=== PATIENT | female | born 1960 | race Caucasian/White ===

== ENCOUNTER 2018-02-02 23:24 | Inpatient (IN) | payer MEDICAID ==
[~2018-02-02] VITALS: Ht 160 cm; Wt 41.5 kg
[~2018-02-02 23:24] MED LIST: ENALAPRIL; GLIPIZIDE; METFORMIN; NOVOLOG
[2018-02-02] MEDS ORDERED: SODIUM CHLORIDE 0.9% 1,000 ML IV ONE (23:34)
[2018-02-02] MEDS ORDERED: LORazepam 2 MG/ML, 1ML ONE (23:51)
[2018-02-03] MEDS ORDERED: LORazepam 2 MG/ML, 1ML IVPush ONE
[2018-02-03] MEDS ORDERED: SODIUM CHLORIDE 0.9% 1,000ML IVBOLUS ONE
[2018-02-03] MEDS ORDERED: SODIUM CHLORIDE FLUSH 10ML SYR IVF ONE
[2018-02-03 00:08] LABS: MEAN CORPUSCULAR HEMOGLOBIN 28.3 pg (27.0-34.8); MEAN CORPUSCULAR HGB CONC 33.7 g/dL (32.4-35.8); MEAN CORPUSCULAR VOLUME 84.1 fL (80-100); MEAN PLATELET VOLUME 10.2 fL (7.4-10.4); PLATELET COUNT 192 x10^3/uL (130-400); RED CELL DISTRIBUTION WIDTH 14.6 % (9.6-15.2)
[2018-02-03 00:12] LABS: MICROSCOPIC AUTO
[2018-02-03 00:20] LABS: CULTURE INDICATED? YES
[2018-02-03 00:25] LABS: BASOPHILS # (AUTO) 0.06 x10^3/uL (0-0.1); BASOPHILS % (AUTO) 0 % (0-1); EOSINOPHILS # (AUTO) 0.07 x10^3/uL (0-0.4); EOSINOPHILS % (AUTO) 0 % (1-7); LYMPHOCYTES # (AUTO) 1.33 x10^3/uL (1-3.4); LYMPHOCYTES % (AUTO) 7 % (22-44); MD SCAN; MONOCYTES # (AUTO) 1.22 x10^3/uL (0.2-0.8); MONOCYTES % (AUTO) 6 % (2-9); NEUTROPHILS # (AUTO) 17.03 x10^3/uL (1.8-6.8); NEUTROPHILS % (AUTO) 86 % (42-75)
[2018-02-03 00:41] LABS: ALANINE AMINOTRANSFERASE 47 U/L (12-78); ALBUMIN 2.4 g/dL (3.4-5.0); ANION GAP 9 mmol/L (5-15); CALCIUM 8.7 mg/dL (8.5-10.1); CHLORIDE 95 mmol/L (98-107); CREATININE 0.81 mg/dL (0.55-1.02)
[2018-02-03 00:43] LABS: ALKALINE PHOSPHATASE 291 U/L (45-117); BILIRUBIN,TOTAL 1.2 mg/dL (0.2-1.0); TOTAL PROTEIN 7.4 g/dL (6.4-8.2)
[2018-02-03] MEDS ORDERED: ACETAMINOPHEN 325 MG TABLET PO PRN (01:00)
[2018-02-03] MEDS ORDERED: DOCUSATE 100 MG CAPSULE PO PRN (01:00)
[2018-02-03] MEDS ORDERED: POLYETHYLENE GLYCOL 17 GM PACKET PO PRN (01:00)
[2018-02-03] MEDS ORDERED: hydrALAzine 20 MG/ML, 1ML IVPush PRN (01:00)
[2018-02-03] MEDS ORDERED: BISACODYL 10 MG SUPP PR PRN (01:00)
[2018-02-03] MEDS ORDERED: morphine SULFATE 10 MG/ML, 1ML IVPush PRN (01:00)
[2018-02-03] MEDS ORDERED: PROMETHAZINE 25 MG/ML, 1ML IM PRN (01:00)
[2018-02-03] MEDS ORDERED: ONDANSETRON ODT 4 MG PO PRN (01:00)
[2018-02-03] MEDS ORDERED: CEFTRIAXONE PMX 1GM/50ML 50 ML IV ONE (01:00)
[2018-02-03] MEDS ORDERED: CEFTRIAXONE PMX 1GM/50ML 50 ML IVPB ONE (01:00)
[2018-02-03] MEDS ORDERED: LABETALOL 5MG/ML, 20ML IVPush PRN (01:00)
[2018-02-03 01:15] LABS: INTERNATIONAL NORMALIZED RATIO 1.15 (0.93-1.1); PROTHROMBIN TIME 11.8 Seconds (9.6-11.5)
[2018-02-03] MEDS ORDERED: CEFTRIAXONE PMX 1GM/50ML 50 ML ONE (01:16)
[2018-02-03 01:23] LABS: FREE T4 (FREE THYROXINE) 1.26 ng/dL (0.76-1.46); THYROID STIMULATING HORMONE 1.74 mIU/L (0.358-3.740)
[2018-02-03 01:43] LABS: HEMOGLOBIN A1C 10.2 % (4.2-6.3)
[2018-02-03] MEDS ORDERED: LABETALOL 5MG/ML, 20ML ONE (01:48)
[2018-02-03] MEDS: SODIUM CHLORIDE 0.9% 1,000 ML IV SCH ×3 (02:35→17:29)
[2018-02-03 02:38] VITALS: BP 153/77
[2018-02-03] MEDS: HEPARIN 5,000 UNITS/ML, 1ML SQ SCH ×3 (02:50→19:30)
[2018-02-03 06:24] VITALS: BP 131/69
[2018-02-03] MEDS: INSULIN LISPRO 100 UNITS/ML, PEN SQ-INSULIN SCH ×4 (07:00→21:00)
[2018-02-03] MEDS: LOSARTAN 25MG TABLET PO SCH (09:00)
[2018-02-03 11:11] LABS: AMPHETAMINE SCREEN, URINE Positive (Negative); BARBITURATE SCREEN, URINE Negative (Negative); BENZODIAZEPINE SCREEN, URINE Negative (Negative); CANNABINOID SCREEN, URINE Positive (Negative); COCAINE SCREEN, URINE Negative (Negative); METHADONE SCREEN, URINE Negative (Negative); OPIATE SCREEN, URINE Negative (Negative)
[2018-02-03] MEDS: METOCLOPRAMIDE 5 MG/ML, 2ML IVPush SCH ×3 (11:29→22:30)
[2018-02-03 12:50] VITALS: BP 140/74
[2018-02-03 18:21] VITALS: BP 146/77
[2018-02-03] MEDS ORDERED: OMNIPAQUE 350 MG/ML, 100ML BOTTLE ONE (18:37)
[2018-02-03] MEDS ORDERED: CEFTRIAXONE PMX 2GM/50ML 50 ML IV SCH (23:30)
[2018-02-04] MEDS: CEFTRIAXONE 2 GM in DEXTROSE 5% 50 ML IV SCH (00:39)
[2018-02-04 01:56] VITALS: BP 135/73
[2018-02-04] MEDS: HEPARIN 5,000 UNITS/ML, 1ML SQ SCH ×3 (03:30→19:56)
[2018-02-04 05:03] LABS: MEAN CORPUSCULAR HEMOGLOBIN 28.8 pg (27.0-34.8); MEAN CORPUSCULAR HGB CONC 33.9 g/dL (32.4-35.8); MEAN CORPUSCULAR VOLUME 84.9 fL (80-100); MEAN PLATELET VOLUME 10.5 fL (7.4-10.4); PLATELET COUNT 143 x10^3/uL (130-400); RED BLOOD COUNT 4.12 x10^6/uL (3.82-5.3)
[2018-02-04 05:05] LABS: ALBUMIN 1.8 g/dL (3.4-5.0); ANION GAP 10 mmol/L (5-15); CALCIUM 7.3 mg/dL (8.5-10.1); CHLORIDE 105 mmol/L (98-107)
[2018-02-04 05:08] LABS: ALANINE AMINOTRANSFERASE 33 U/L (12-78); ALKALINE PHOSPHATASE 239 U/L (45-117); BILIRUBIN,TOTAL 1.4 mg/dL (0.2-1.0); CHOL/HDL RATIO 12.5; CHOLESTEROL, TOTAL 100 mg/dL (140-239); CREATININE 0.59 mg/dL (0.55-1.02); HDL CHOL % 8 % (28-40); HDL CHOLESTEROL (DIRECT) 8 mg/dL (40-60); LDL CHOLESTEROL,CALCULATED 63 mg/dL (54-169); LDL/HDL RATIO 7.9 (0.5-3.0); TOTAL PROTEIN 5.9 g/dL (6.4-8.2); TRIGLYCERIDES 146 mg/dL (50-200); VLDL CHOLESTEROL 29 mg/dL (0-25)
[2018-02-04 05:57] LABS: MD YES
[2018-02-04 05:58] LABS: BAND#(MANUAL) 0.94 x10^3/uL; BANDS%(MANUAL) 4 % (0-7); LYMPH#(MANUAL) 0.94 x10^3/uL (1-3.4); LYMPHS% (MANUAL) 4 % (22-44); MONOS#(MANUAL) 1.65 x10^3/uL (0.3-2.7); MONOS% (MANUAL) 7 % (2-9); SEG#(MANUAL) 19.98 x10^3/uL (1.8-6.8); SEGS% (MANUAL) 85 % (42-75)
[2018-02-04 05:59] LABS: <PLATELET ESTIMATE> ADEQUATE; <RBC MORPHOLOGY> NORMAL; LARGE PLATELETS 1+
[2018-02-04 06:00] LABS: PMNS WITH VACUOLES 1+
[2018-02-04] MEDS: INSULIN LISPRO 100 UNITS/ML, PEN SQ-INSULIN SCH ×4 (07:00→19:56)
[2018-02-04 08:44] VITALS: BP 155/84
[2018-02-04] MEDS ORDERED: OMNIPAQUE 350 MG/ML, 100ML BOTTLE ONE (10:56)
[2018-02-04 11:46] LABS: CLOSTRIDIUM DIFFICILE ANTIGEN POSITIVE; CLOSTRIDIUM DIFFICILE TOXIN NEGATIVE (Negative)
[2018-02-04] MEDS: LOSARTAN 25MG TABLET PO SCH (11:55)
[2018-02-04] MEDS ORDERED: VANCOMYCIN PER PHARMACY MC PRN (13:30)
[2018-02-04] MEDS ORDERED: PHARMACOKINETIC CONSULTATION MC ONE (13:30)
[2018-02-04] MEDS ORDERED: VANCOMYCIN 800 MG in SODIUM CHLORIDE 0.9% 100 ML IV SCH (14:00)
[2018-02-04] MEDS ORDERED: PHARMACOKINETIC MONITORING MC PRN (14:00)
[2018-02-04 16:12] VITALS: BP 154/66
[2018-02-04 18:40] VITALS: BP 155/89
[2018-02-05] MEDS: CEFTRIAXONE 2 GM in DEXTROSE 5% 50 ML IV SCH (00:08)
[2018-02-05 00:36] VITALS: BP 145/74
[2018-02-05] MEDS: HEPARIN 5,000 UNITS/ML, 1ML SQ SCH ×3 (04:48→20:43)
[2018-02-05] MEDS: OXYcodone IR 5MG TABLET PO PRN ×3 (04:48→17:53)
[2018-02-05 05:25] LABS: MEAN CORPUSCULAR HEMOGLOBIN 28.4 pg (27.0-34.8); MEAN CORPUSCULAR HGB CONC 33.4 g/dL (32.4-35.8); MEAN CORPUSCULAR VOLUME 85.2 fL (80-100); PLATELET COUNT 154 x10^3/uL (130-400); RED BLOOD COUNT 4.41 x10^6/uL (3.82-5.3); RED CELL DISTRIBUTION WIDTH 15.2 % (9.6-15.2)
[2018-02-05 05:28] LABS: ALBUMIN 1.7 g/dL (3.4-5.0); ANION GAP 8 mmol/L (5-15); CALCIUM 7.7 mg/dL (8.5-10.1); CHLORIDE 101 mmol/L (98-107)
[2018-02-05 05:31] LABS: ALANINE AMINOTRANSFERASE 29 U/L (12-78); ALKALINE PHOSPHATASE 236 U/L (45-117); BILIRUBIN,TOTAL 0.9 mg/dL (0.2-1.0); CREATININE 0.47 mg/dL (0.55-1.02); TOTAL PROTEIN 5.9 g/dL (6.4-8.2)
[2018-02-05 06:35] LABS: MD YES
[2018-02-05 06:37] LABS: BAND#(MANUAL) 1.17 x10^3/uL; BANDS%(MANUAL) 6 % (0-7); LYMPH#(MANUAL) 0.78 x10^3/uL (1-3.4); LYMPHS% (MANUAL) 4 % (22-44); MONOS#(MANUAL) 0.78 x10^3/uL (0.3-2.7); MONOS% (MANUAL) 4 % (2-9); SEG#(MANUAL) 16.77 x10^3/uL (1.8-6.8); SEGS% (MANUAL) 86 % (42-75)
[2018-02-05 06:38] LABS: <RBC MORPHOLOGY> NORMAL; PMNS WITH VACUOLES 1+; TOXIC GRAN 1+
[2018-02-05 06:39] LABS: <PLATELET ESTIMATE> ADEQUATE; <PLT MORPHOLOGY> NORMAL PLT MORPH
[2018-02-05 07:27] VITALS: BP 149/84
[2018-02-05] MEDS: LOSARTAN 25MG TABLET PO SCH (08:51)
[2018-02-05] MEDS: INSULIN LISPRO 100 UNITS/ML, PEN SQ-INSULIN SCH ×4 (08:56→20:52)
[2018-02-05] MEDS: ERTAPENEM 1 GM in SODIUM CHLORIDE 0.9% 50 ML IV SCH (10:26)
[2018-02-05 13:28] VITALS: BP 146/79
[2018-02-05] MEDS: LACTATED RINGERS 1,000 ML IV SCH (16:15)
[2018-02-05 19:28] VITALS: BP 138/75
[2018-02-06] MEDS: LACTATED RINGERS 1,000 ML IV SCH ×3 (02:03→21:00)
[2018-02-06 02:16] VITALS: BP 157/81
[2018-02-06] MEDS: HEPARIN 5,000 UNITS/ML, 1ML SQ SCH (04:20)
[2018-02-06 05:15] LABS: MEAN CORPUSCULAR HEMOGLOBIN 28.3 pg (27.0-34.8); MEAN CORPUSCULAR HGB CONC 33.3 g/dL (32.4-35.8); MEAN CORPUSCULAR VOLUME 85.1 fL (80-100); MEAN PLATELET VOLUME 9.9 fL (7.4-10.4); PLATELET COUNT 123 x10^3/uL (130-400); RED BLOOD COUNT 4.26 x10^6/uL (3.82-5.3); RED CELL DISTRIBUTION WIDTH 15.2 % (9.6-15.2)
[2018-02-06 05:19] LABS: CHLORIDE 101 mmol/L (98-107)
[2018-02-06 05:24] LABS: ALANINE AMINOTRANSFERASE 22 U/L (12-78); ALBUMIN 1.6 g/dL (3.4-5.0); ALKALINE PHOSPHATASE 183 U/L (45-117); ANION GAP 8 mmol/L (5-15); CALCIUM 7.6 mg/dL (8.5-10.1); CREATININE 0.38 mg/dL (0.55-1.02); TOTAL PROTEIN 5.3 g/dL (6.4-8.2)
[2018-02-06 05:47] LABS: MD YES
[2018-02-06 05:50] LABS: BANDS%(MANUAL) 7 % (0-7); LYMPHS% (MANUAL) 6 % (22-44); METAMYELOCYTES% (MANUAL) 1 % (0-1); MONOS% (MANUAL) 7 % (2-9); SEGS% (MANUAL) 79 % (42-75)
[2018-02-06 05:51] LABS: <PLATELET ESTIMATE> DECREASED; <PLT MORPHOLOGY> NORMAL PLT MORPH; <RBC MORPHOLOGY> NORMAL; TOXIC GRAN 1+
[2018-02-06 06:37] VITALS: BP 144/81
[2018-02-06] MEDS ORDERED: LABETALOL 5MG/ML, 20ML IVPush PRN (09:30)
[2018-02-06] MEDS: OXYcodone IR 5MG TABLET PO PRN ×3 (10:13→20:59)
[2018-02-06] MEDS: ERTAPENEM 1 GM in SODIUM CHLORIDE 0.9% 50 ML IV SCH (10:13)
[2018-02-06] MEDS: LOSARTAN 25MG TABLET PO SCH (10:13)
[2018-02-06] MEDS: INSULIN LISPRO 100 UNITS/ML, PEN SQ-INSULIN SCH ×4 (10:16→21:03)
[2018-02-06 13:43] VITALS: BP 139/82
[2018-02-06] MEDS: VANCOMYCIN 50 MG/ML ORAL SUSP PO SCH ×2 (15:59→23:51)
[2018-02-06 20:30] VITALS: BP 153/84
[2018-02-07] MEDS: OXYcodone IR 5MG TABLET PO PRN ×5 (01:22→19:56)
[2018-02-07 02:17] VITALS: BP 153/91
[2018-02-07 06:31] VITALS: BP 155/83
[2018-02-07] MEDS: INSULIN LISPRO 100 UNITS/ML, PEN SQ-INSULIN SCH ×4 (08:22→21:47)
[2018-02-07] MEDS: VANCOMYCIN 50 MG/ML ORAL SUSP PO SCH ×2 (08:23→15:25)
[2018-02-07] MEDS: LOSARTAN 25MG TABLET PO SCH (09:35)
[2018-02-07] MEDS: ERTAPENEM 1 GM in SODIUM CHLORIDE 0.9% 50 ML IV SCH (09:36)
[2018-02-07] MEDS: LACTATED RINGERS 1,000 ML IV SCH (09:37)
[2018-02-07 12:48] VITALS: BP 147/81
[2018-02-07 20:04] VITALS: BP 151/80
[2018-02-07] MEDS: INSULIN GLARGINE 100 UNITS/ML, PEN SQ-INSULIN SCH (21:47)
[2018-02-08] MEDS: LACTATED RINGERS 1,000 ML IV SCH ×3 (00:26→23:56)
[2018-02-08] MEDS: VANCOMYCIN 50 MG/ML ORAL SUSP PO SCH ×3 (00:27→23:56)
[2018-02-08 02:01] VITALS: BP 151/72
[2018-02-08 04:49] LABS: BASOPHILS # (AUTO) 0.05 x10^3/uL (0-0.1); BASOPHILS % (AUTO) 0 % (0-1); EOSINOPHILS % (AUTO) 1 % (1-7); LYMPHOCYTES # (AUTO) 1.41 x10^3/uL (1-3.4); LYMPHOCYTES % (AUTO) 11 % (22-44); MD NO; MEAN CORPUSCULAR HEMOGLOBIN 27.9 pg (27.0-34.8); MEAN CORPUSCULAR HGB CONC 32.2 g/dL (32.4-35.8); MEAN CORPUSCULAR VOLUME 86.6 fL (80-100); MEAN PLATELET VOLUME 9.9 fL (7.4-10.4); MONOCYTES # (AUTO) 1.12 x10^3/uL (0.2-0.8); MONOCYTES % (AUTO) 9 % (2-9); NEUTROPHILS # (AUTO) 10.06 x10^3/uL (1.8-6.8); NEUTROPHILS % (AUTO) 79 % (42-75); PLATELET COUNT 118 x10^3/uL (130-400); RED BLOOD COUNT 4.04 x10^6/uL (3.82-5.3); RED CELL DISTRIBUTION WIDTH 15.6 % (9.6-15.2)
[2018-02-08 04:59] LABS: ALBUMIN 1.5 g/dL (3.4-5.0); ANION GAP 7 mmol/L (5-15); CALCIUM 7.2 mg/dL (8.5-10.1); CHLORIDE 102 mmol/L (98-107); CREATININE 0.28 mg/dL (0.55-1.02)
[2018-02-08] MEDS: INSULIN LISPRO 100 UNITS/ML, PEN SQ-INSULIN SCH ×2 (06:17→11:00)
[2018-02-08 08:13] VITALS: BP 163/84
[2018-02-08] MEDS ORDERED: MAGNESIUM SULFATE PMX 4GM/100M 100 ML IV ONE (09:00)
[2018-02-08] MEDS: LOSARTAN 25MG TABLET PO SCH (09:17)
[2018-02-08] MEDS: ERTAPENEM 1 GM in SODIUM CHLORIDE 0.9% 50 ML IV SCH (09:17)
[2018-02-08] MEDS: INSULIN GLARGINE 100 UNITS/ML, PEN SQ-INSULIN SCH (09:18)
[2018-02-08] MEDS: OXYcodone IR 5MG TABLET PO PRN ×4 (10:01→22:41)
[2018-02-08 15:42] VITALS: BP 160/89
[2018-02-08 18:38] VITALS: BP 159/84
[2018-02-08] MEDS: ENOXAPARIN 40 MG/0.4 ML SQ SCH (20:55)
[2018-02-09 02:07] VITALS: BP 152/73
[2018-02-09 05:25] LABS: BASOPHILS # (AUTO) 0.07 x10^3/uL (0-0.1); BASOPHILS % (AUTO) 1 % (0-1); EOSINOPHILS # (AUTO) 0.11 x10^3/uL (0-0.4); EOSINOPHILS % (AUTO) 1 % (1-7); LYMPHOCYTES # (AUTO) 1.15 x10^3/uL (1-3.4); LYMPHOCYTES % (AUTO) 11 % (22-44); MD NO; MEAN CORPUSCULAR HGB CONC 32.8 g/dL (32.4-35.8); MEAN CORPUSCULAR VOLUME 85.4 fL (80-100); MEAN PLATELET VOLUME 9.6 fL (7.4-10.4); MONOCYTES # (AUTO) 0.72 x10^3/uL (0.2-0.8); MONOCYTES % (AUTO) 7 % (2-9); NEUTROPHILS # (AUTO) 8.62 x10^3/uL (1.8-6.8); NEUTROPHILS % (AUTO) 81 % (42-75); PLATELET COUNT 135 x10^3/uL (130-400); RED BLOOD COUNT 4.06 x10^6/uL (3.82-5.3); RED CELL DISTRIBUTION WIDTH 15.3 % (9.6-15.2)
[2018-02-09 05:26] LABS: ALBUMIN 1.7 g/dL (3.4-5.0); ANION GAP 4 mmol/L (5-15); CALCIUM 7.9 mg/dL (8.5-10.1); CHLORIDE 99 mmol/L (98-107); CREATININE 0.47 mg/dL (0.55-1.02)
[2018-02-09] MEDS: OXYcodone IR 5MG TABLET PO PRN ×4 (05:45→22:23)
[2018-02-09 07:57] VITALS: BP 142/87
[2018-02-09] MEDS: LOSARTAN 25MG TABLET PO SCH (08:27)
[2018-02-09] MEDS: INSULIN GLARGINE 100 UNITS/ML, PEN SQ-INSULIN SCH ×3 (08:29→20:40)
[2018-02-09] MEDS: ERTAPENEM 1 GM in SODIUM CHLORIDE 0.9% 50 ML IV SCH (08:44)
[2018-02-09] MEDS: LACTATED RINGERS 1,000 ML IV SCH ×2 (10:04→20:00)
[2018-02-09] MEDS: VANCOMYCIN 50 MG/ML ORAL SUSP PO SCH (11:51)
[2018-02-09 14:54] VITALS: BP 162/82
[2018-02-09 19:15] VITALS: BP 179/84
[2018-02-09] MEDS: ENOXAPARIN 40 MG/0.4 ML SQ SCH (20:34)
[2018-02-10] MEDS: VANCOMYCIN 50 MG/ML ORAL SUSP PO SCH ×2 (00:07→13:33)
[2018-02-10 01:28] VITALS: BP 138/77
[2018-02-10] MEDS: LACTATED RINGERS 1,000 ML IV SCH (05:03)
[2018-02-10] MEDS: INSULIN GLARGINE 100 UNITS/ML, PEN SQ-INSULIN SCH ×2 (09:00→21:53)
[2018-02-10 09:29] VITALS: BP 173/96
[2018-02-10] MEDS: ERTAPENEM 1 GM in SODIUM CHLORIDE 0.9% 50 ML IV SCH (09:58)
[2018-02-10] MEDS: LOSARTAN 25MG TABLET PO SCH (09:58)
[2018-02-10] MEDS: OXYcodone IR 5MG TABLET PO PRN ×3 (09:58→19:27)
[2018-02-10 12:55] VITALS: BP 143/79
[2018-02-10 19:02] VITALS: BP 176/80
[2018-02-10 21:51] VITALS: BP 139/57
[2018-02-10] MEDS: ENOXAPARIN 40 MG/0.4 ML SQ SCH (21:53)
[2018-02-11] MEDS: OXYcodone IR 5MG TABLET PO PRN ×4 (00:25→19:30)
[2018-02-11] MEDS: VANCOMYCIN 50 MG/ML ORAL SUSP PO SCH ×2 (00:25→12:28)
[2018-02-11 03:49] VITALS: BP 128/64
[2018-02-11 05:37] LABS: BASOPHILS # (AUTO) 0.02 x10^3/uL (0-0.1); BASOPHILS % (AUTO) 0 % (0-1); EOSINOPHILS % (AUTO) 1 % (1-7); LYMPHOCYTES # (AUTO) 1.56 x10^3/uL (1-3.4); LYMPHOCYTES % (AUTO) 14 % (22-44); MD NO; MEAN CORPUSCULAR HEMOGLOBIN 28.9 pg (27.0-34.8); MEAN CORPUSCULAR HGB CONC 33.7 g/dL (32.4-35.8); MEAN CORPUSCULAR VOLUME 85.9 fL (80-100); MEAN PLATELET VOLUME 9.6 fL (7.4-10.4); MONOCYTES # (AUTO) 0.95 x10^3/uL (0.2-0.8); MONOCYTES % (AUTO) 9 % (2-9); NEUTROPHILS % (AUTO) 76 % (42-75); PLATELET COUNT 123 x10^3/uL (130-400); RED BLOOD COUNT 3.61 x10^6/uL (3.82-5.3); RED CELL DISTRIBUTION WIDTH 15.4 % (9.6-15.2)
[2018-02-11 05:50] LABS: ALBUMIN 1.6 g/dL (3.4-5.0); ANION GAP 8 mmol/L (5-15); CALCIUM 7.4 mg/dL (8.5-10.1); CHLORIDE 95 mmol/L (98-107)
[2018-02-11 05:54] LABS: ALANINE AMINOTRANSFERASE 14 U/L (12-78); ALKALINE PHOSPHATASE 137 U/L (45-117); TOTAL PROTEIN 5.1 g/dL (6.4-8.2)
[2018-02-11] MEDS ORDERED: MAGNESIUM SULFATE PMX 2GM/50ML 50 ML IV ONE ×2 (06:30→12:30)
[2018-02-11 06:38] VITALS: BP 174/89
[2018-02-11] MEDS: ERTAPENEM 1 GM in SODIUM CHLORIDE 0.9% 50 ML IV SCH (09:24)
[2018-02-11] MEDS: LOSARTAN 25MG TABLET PO SCH (09:24)
[2018-02-11] MEDS: INSULIN GLARGINE 100 UNITS/ML, PEN SQ-INSULIN SCH ×2 (09:44→21:49)
[2018-02-11] MEDS ORDERED: INSULIN GLARGINE 100 UNITS/ML, PEN SQ-INSULIN ONE (12:30)
[2018-02-11 14:10] VITALS: BP 128/70
[2018-02-11 19:27] VITALS: BP 135/75
[2018-02-11] MEDS: ENOXAPARIN 40 MG/0.4 ML SQ SCH (21:40)
[2018-02-12] MEDS: VANCOMYCIN 50 MG/ML ORAL SUSP PO SCH ×3 (00:45→20:44)
[2018-02-12 01:30] VITALS: BP 133/71
[2018-02-12 05:25] LABS: MD YES; MEAN CORPUSCULAR HEMOGLOBIN 28.7 pg (27.0-34.8); MEAN CORPUSCULAR HGB CONC 33.2 g/dL (32.4-35.8); MEAN CORPUSCULAR VOLUME 86.6 fL (80-100); MEAN PLATELET VOLUME 9.3 fL (7.4-10.4); PLATELET COUNT 127 x10^3/uL (130-400); RED BLOOD COUNT 3.51 x10^6/uL (3.82-5.3); RED CELL DISTRIBUTION WIDTH 15.7 % (9.6-15.2)
[2018-02-12 05:45] LABS: ALANINE AMINOTRANSFERASE 15 U/L (12-78); CHLORIDE 98 mmol/L (98-107)
[2018-02-12 05:46] LABS: BASOPHILS # (AUTO) 0.07 x10^3/uL (0-0.1); BASOPHILS % (AUTO) 1 % (0-1); EOSINOPHILS # (AUTO) 0.04 x10^3/uL (0-0.4); EOSINOPHILS % (AUTO) 1 % (1-7); LYMPHOCYTES # (AUTO) 1.56 x10^3/uL (1-3.4); LYMPHOCYTES % (AUTO) 18 % (22-44); MONOCYTES # (AUTO) 1.32 x10^3/uL (0.2-0.8); MONOCYTES % (AUTO) 15 % (2-9); NEUTROPHILS # (AUTO) 5.71 x10^3/uL (1.8-6.8); NEUTROPHILS % (AUTO) 66 % (42-75)
[2018-02-12 05:56] LABS: ALBUMIN 1.5 g/dL (3.4-5.0); ALKALINE PHOSPHATASE 156 U/L (45-117); ANION GAP 7 mmol/L (5-15); BILIRUBIN,TOTAL 0.4 mg/dL (0.2-1.0); CALCIUM 7.8 mg/dL (8.5-10.1); CREATININE 0.49 mg/dL (0.55-1.02); TOTAL PROTEIN 5.2 g/dL (6.4-8.2)
[2018-02-12 06:13] LABS: BAND#(MANUAL) 0.17 x10^3/uL; BANDS%(MANUAL) 2 % (0-7); LYMPH#(MANUAL) 1.22 x10^3/uL (1-3.4); LYMPHS% (MANUAL) 14 % (22-44); MONOS#(MANUAL) 1.31 x10^3/uL (0.3-2.7); MONOS% (MANUAL) 15 % (2-9); SEGS% (MANUAL) 69 % (42-75)
[2018-02-12 06:14] LABS: POLYCHROMASIA 1+
[2018-02-12 06:15] LABS: <PLATELET ESTIMATE> DECREASED; <PLT MORPHOLOGY> NORMAL PLT MORPH
[2018-02-12 06:16] LABS: ANISOCYTOSIS 1+
[2018-02-12 09:12] VITALS: BP 153/79
[2018-02-12] MEDS: LOSARTAN 25MG TABLET PO SCH (09:14)
[2018-02-12] MEDS: INSULIN GLARGINE 100 UNITS/ML, PEN SQ-INSULIN SCH ×2 (09:15→20:33)
[2018-02-12] MEDS: ERTAPENEM 1 GM in SODIUM CHLORIDE 0.9% 50 ML IV SCH (09:15)
[2018-02-12] MEDS ORDERED: MIDAZOLAM 1 MG/ML, 2ML ONE (13:17)
[2018-02-12] MEDS ORDERED: FENTANYL PF 250 MCG/5ML ONE (13:28)
[2018-02-12 13:30] VITALS: BP 132/75
[2018-02-12] MEDS ORDERED: DEXMEDETOMIDINE 200 MCG/2 ML ONE (13:30)
[2018-02-12] MEDS ORDERED: KETAMINE 10 MG/ML, 20ML ONE (13:30)
[2018-02-12] MEDS ORDERED: NEOSTIGMINE 1 MG/ML, 10ML ONE (13:42)
[2018-02-12] MEDS ORDERED: CEFOTETAN 2 GM ONE (13:42)
[2018-02-12] MEDS ORDERED: PHENYLEPHRINE 10 MG/ML ONE (13:42)
[2018-02-12] MEDS ORDERED: BUPIVACAINE/PF-EPI 0.5% 1:200K ONE (14:02)
[2018-02-12] MEDS ORDERED: PROPOFOL 10 MG/ML, 20ML ONE (14:40)
[2018-02-12] MEDS ORDERED: DEXAMETHASONE 4 MG/ML, 1ML ONE (14:40)
[2018-02-12] MEDS ORDERED: CALCIUM CHLORIDE 10%, 10ML SYR ONE (14:40)
[2018-02-12] MEDS ORDERED: ROCURONIUM 10MG/ML,5ML ONE (14:40)
[2018-02-12] MEDS ORDERED: THROMBIN 5,000 UNIT VIAL TP ONE ×2 (14:44→14:46)
[2018-02-12] MEDS ORDERED: GLYCOPYRROLATE 0.4 MG/2 ML, 2ML ONE (15:02)
[2018-02-12] MEDS ORDERED: MORPHINE SULFATE 4 MG/ML, 1ML ONE (15:55)
[2018-02-12] MEDS ORDERED: morphine SULFATE 10 MG/ML, 1ML IV PRN (16:00)
[2018-02-12] MEDS: MORPHINE SULFATE 4 MG/ML, 1ML IVPush PRN ×4 (17:00→18:30)
[2018-02-12 18:32] VITALS: BP 148/79
[2018-02-12] MEDS: LACTATED RINGERS 1,000 ML IV SCH (20:09)
[2018-02-12] MEDS: OXYcodone IR 5MG TABLET PO PRN (20:33)
[2018-02-12] MEDS: ENOXAPARIN 40 MG/0.4 ML SQ SCH (20:33)
[2018-02-13 00:38] VITALS: BP 143/76
[2018-02-13] MEDS: OXYcodone IR 5MG TABLET PO PRN ×5 (00:38→20:17)
[2018-02-13 04:41] VITALS: BP 137/68
[2018-02-13 07:06] VITALS: BP 128/73
[2018-02-13] MEDS: ERTAPENEM 1 GM in SODIUM CHLORIDE 0.9% 50 ML IV SCH (08:57)
[2018-02-13] MEDS: LOSARTAN 25MG TABLET PO SCH (08:57)
[2018-02-13] MEDS: VANCOMYCIN 50 MG/ML ORAL SUSP PO SCH ×2 (08:57→20:17)
[2018-02-13] MEDS: LACTATED RINGERS 1,000 ML IV SCH ×2 (08:58→22:59)
[2018-02-13] MEDS: INSULIN GLARGINE 100 UNITS/ML, PEN SQ-INSULIN SCH ×2 (09:21→20:16)
[2018-02-13 13:38] VITALS: BP 116/70
[2018-02-13] MEDS: MORPHINE SULFATE 4 MG/ML, 1ML IVPush PRN ×2 (18:49→22:59)
[2018-02-13 19:37] VITALS: BP 113/61
[2018-02-13] MEDS: ENOXAPARIN 40 MG/0.4 ML SQ SCH (20:16)
[2018-02-14] MEDS: OXYcodone IR 5MG TABLET PO PRN ×6 (00:34→21:51)
[2018-02-14 05:20] VITALS: BP 127/72
[2018-02-14 06:10] LABS: ALBUMIN 1.7 g/dL (3.4-5.0); ANION GAP 7 mmol/L (5-15); CALCIUM 8.1 mg/dL (8.5-10.1); CHLORIDE 96 mmol/L (98-107)
[2018-02-14 06:11] LABS: CREATININE 0.63 mg/dL (0.55-1.02)
[2018-02-14 06:15] LABS: BASOPHILS # (AUTO) 0.05 x10^3/uL (0-0.1); BASOPHILS % (AUTO) 1 % (0-1); EOSINOPHILS # (AUTO) 0.04 x10^3/uL (0-0.4); EOSINOPHILS % (AUTO) 1 % (1-7); LYMPHOCYTES # (AUTO) 1.77 x10^3/uL (1-3.4); LYMPHOCYTES % (AUTO) 25 % (22-44); MD NO; MEAN CORPUSCULAR HEMOGLOBIN 28.4 pg (27.0-34.8); MEAN CORPUSCULAR HGB CONC 33.2 g/dL (32.4-35.8); MEAN CORPUSCULAR VOLUME 85.6 fL (80-100); MEAN PLATELET VOLUME 9.3 fL (7.4-10.4); MONOCYTES # (AUTO) 0.95 x10^3/uL (0.2-0.8); MONOCYTES % (AUTO) 13 % (2-9); NEUTROPHILS % (AUTO) 61 % (42-75); PLATELET COUNT 176 x10^3/uL (130-400); RED BLOOD COUNT 3.92 x10^6/uL (3.82-5.3); RED CELL DISTRIBUTION WIDTH 15.8 % (9.6-15.2)
[2018-02-14 08:00] VITALS: BP 118/70
[2018-02-14] MEDS: VANCOMYCIN 50 MG/ML ORAL SUSP PO SCH ×2 (08:51→21:50)
[2018-02-14] MEDS: INSULIN GLARGINE 100 UNITS/ML, PEN SQ-INSULIN SCH ×2 (08:51→21:50)
[2018-02-14] MEDS: ERTAPENEM 1 GM in SODIUM CHLORIDE 0.9% 50 ML IV SCH (08:51)
[2018-02-14] MEDS: LOSARTAN 25MG TABLET PO SCH (08:59)
[2018-02-14] MEDS: LACTATED RINGERS 1,000 ML IV SCH (12:00)
[2018-02-14 13:10] VITALS: BP 123/78
[2018-02-14 20:49] VITALS: BP 128/73
[2018-02-14] MEDS: ENOXAPARIN 40 MG/0.4 ML SQ SCH (21:49)
[2018-02-15] MEDS: LACTATED RINGERS 1,000 ML IV SCH ×2 (01:20→14:40)
[2018-02-15 02:07] VITALS: BP 128/75
[2018-02-15] MEDS: OXYcodone IR 5MG TABLET PO PRN ×4 (02:26→17:45)
[2018-02-15 05:40] LABS: BASOPHILS # (AUTO) 0.03 x10^3/uL (0-0.1); BASOPHILS % (AUTO) 1 % (0-1); EOSINOPHILS # (AUTO) 0.05 x10^3/uL (0-0.4); EOSINOPHILS % (AUTO) 1 % (1-7); LYMPHOCYTES # (AUTO) 1.63 x10^3/uL (1-3.4); LYMPHOCYTES % (AUTO) 28 % (22-44); MD NO; MEAN CORPUSCULAR HEMOGLOBIN 28.8 pg (27.0-34.8); MEAN CORPUSCULAR HGB CONC 33.5 g/dL (32.4-35.8); MEAN CORPUSCULAR VOLUME 86.1 fL (80-100); MEAN PLATELET VOLUME 8.9 fL (7.4-10.4); MONOCYTES # (AUTO) 0.88 x10^3/uL (0.2-0.8); MONOCYTES % (AUTO) 15 % (2-9); NEUTROPHILS # (AUTO) 3.33 x10^3/uL (1.8-6.8); NEUTROPHILS % (AUTO) 56 % (42-75); PLATELET COUNT 141 x10^3/uL (130-400); RED BLOOD COUNT 3.44 x10^6/uL (3.82-5.3); RED CELL DISTRIBUTION WIDTH 16.3 % (9.6-15.2)
[2018-02-15 05:47] LABS: CHLORIDE 99 mmol/L (98-107)
[2018-02-15 05:53] LABS: ALANINE AMINOTRANSFERASE 15 U/L (12-78); ALBUMIN 1.6 g/dL (3.4-5.0); ALKALINE PHOSPHATASE 140 U/L (45-117); ANION GAP 4 mmol/L (5-15); BILIRUBIN,TOTAL 0.6 mg/dL (0.2-1.0); CALCIUM 7.5 mg/dL (8.5-10.1); CREATININE 0.36 mg/dL (0.55-1.02); TOTAL PROTEIN 5.1 g/dL (6.4-8.2)
[2018-02-15] MEDS: ERTAPENEM 1 GM in SODIUM CHLORIDE 0.9% 50 ML IV SCH (08:59)
[2018-02-15] MEDS: LOSARTAN 25MG TABLET PO SCH (08:59)
[2018-02-15] MEDS: VANCOMYCIN 50 MG/ML ORAL SUSP PO SCH ×2 (09:25→21:17)
[2018-02-15] MEDS: INSULIN GLARGINE 100 UNITS/ML, PEN SQ-INSULIN SCH ×2 (09:33→20:41)
[2018-02-15 09:50] VITALS: BP 124/72
[2018-02-15 15:55] VITALS: BP 136/75
[2018-02-15 19:46] VITALS: BP 113/67
[2018-02-15] MEDS: ENOXAPARIN 40 MG/0.4 ML SQ SCH (20:20)
[2018-02-16 02:00] VITALS: BP 130/77
[2018-02-16] MEDS: LACTATED RINGERS 1,000 ML IV SCH (04:00)
[2018-02-16 05:58] LABS: ALANINE AMINOTRANSFERASE 19 U/L (12-78); ALBUMIN 1.7 g/dL (3.4-5.0); ANION GAP 4 mmol/L (5-15); CALCIUM 7.8 mg/dL (8.5-10.1); CHLORIDE 100 mmol/L (98-107); CREATININE 0.53 mg/dL (0.55-1.02)
[2018-02-16 05:59] LABS: BASOPHILS # (AUTO) 0.05 x10^3/uL (0-0.1); BASOPHILS % (AUTO) 1 % (0-1); EOSINOPHILS # (AUTO) 0.05 x10^3/uL (0-0.4); EOSINOPHILS % (AUTO) 1 % (1-7); LYMPHOCYTES # (AUTO) 1.33 x10^3/uL (1-3.4); LYMPHOCYTES % (AUTO) 22 % (22-44); MD NO; MEAN CORPUSCULAR HEMOGLOBIN 28.3 pg (27.0-34.8); MEAN CORPUSCULAR HGB CONC 33.2 g/dL (32.4-35.8); MEAN CORPUSCULAR VOLUME 85.3 fL (80-100); MEAN PLATELET VOLUME 8.8 fL (7.4-10.4); MONOCYTES # (AUTO) 0.53 x10^3/uL (0.2-0.8); MONOCYTES % (AUTO) 9 % (2-9); NEUTROPHILS # (AUTO) 4.02 x10^3/uL (1.8-6.8); NEUTROPHILS % (AUTO) 67 % (42-75); PLATELET COUNT 170 x10^3/uL (130-400); RED BLOOD COUNT 3.76 x10^6/uL (3.82-5.3)
[2018-02-16 06:00] LABS: ALKALINE PHOSPHATASE 168 U/L (45-117); BILIRUBIN,TOTAL 0.4 mg/dL (0.2-1.0); TOTAL PROTEIN 5.8 g/dL (6.4-8.2)
[2018-02-16 09:03] VITALS: BP 126/77
[2018-02-16] MEDS: OXYcodone IR 5MG TABLET PO PRN ×3 (09:15→21:48)
[2018-02-16] MEDS: INSULIN GLARGINE 100 UNITS/ML, PEN SQ-INSULIN SCH ×2 (09:16→22:02)
[2018-02-16] MEDS: VANCOMYCIN 50 MG/ML ORAL SUSP PO SCH ×2 (09:17→21:48)
[2018-02-16] MEDS: LOSARTAN 25MG TABLET PO SCH (09:17)
[2018-02-16] MEDS: ERTAPENEM 1 GM in SODIUM CHLORIDE 0.9% 50 ML IV SCH (09:17)
[2018-02-16] MEDS ORDERED: MAGNESIUM SULFATE PMX 2GM/50ML 50 ML IV ONE (11:00)
[2018-02-16 15:00] VITALS: BP 139/78
[2018-02-16] MEDS: ENOXAPARIN 40 MG/0.4 ML SQ SCH (21:49)
[2018-02-16 23:36] VITALS: BP 120/68
[2018-02-17] MEDS: OXYcodone IR 5MG TABLET PO PRN ×4 (02:14→18:53)
[2018-02-17 02:42] VITALS: BP 137/80
[2018-02-17 05:11] LABS: BASOPHILS # (AUTO) 0.08 x10^3/uL (0-0.1); BASOPHILS % (AUTO) 1 % (0-1); EOSINOPHILS # (AUTO) 0.01 x10^3/uL (0-0.4); EOSINOPHILS % (AUTO) 0 % (1-7); LYMPHOCYTES # (AUTO) 1.69 x10^3/uL (1-3.4); LYMPHOCYTES % (AUTO) 27 % (22-44); MD NO; MEAN CORPUSCULAR HEMOGLOBIN 28.5 pg (27.0-34.8); MEAN CORPUSCULAR HGB CONC 33.5 g/dL (32.4-35.8); MEAN PLATELET VOLUME 8.6 fL (7.4-10.4); MONOCYTES % (AUTO) 11 % (2-9); NEUTROPHILS # (AUTO) 3.83 x10^3/uL (1.8-6.8); NEUTROPHILS % (AUTO) 61 % (42-75); PLATELET COUNT 166 x10^3/uL (130-400); RED BLOOD COUNT 3.62 x10^6/uL (3.82-5.3); RED CELL DISTRIBUTION WIDTH 16.1 % (9.6-15.2)
[2018-02-17 05:28] LABS: CHLORIDE 99 mmol/L (98-107)
[2018-02-17 05:29] LABS: ALBUMIN 1.7 g/dL (3.4-5.0); ANION GAP 6 mmol/L (5-15)
[2018-02-17 05:30] LABS: CREATININE 0.36 mg/dL (0.55-1.02)
[2018-02-17] MEDS: ERTAPENEM 1 GM in SODIUM CHLORIDE 0.9% 50 ML IV SCH (09:37)
[2018-02-17 09:52] VITALS: BP 158/82
[2018-02-17] MEDS: LOSARTAN 25MG TABLET PO SCH (11:15)
[2018-02-17] MEDS: VANCOMYCIN 50 MG/ML ORAL SUSP PO SCH ×2 (11:15→20:07)
[2018-02-17] MEDS: INSULIN GLARGINE 100 UNITS/ML, PEN SQ-INSULIN SCH ×2 (11:34→20:16)
[2018-02-17] MEDS ORDERED: LIDOCAINE-MPF 1%, 2ML ONE (12:16)
[2018-02-17 15:19] VITALS: BP 148/83
[2018-02-17 18:34] VITALS: BP 150/81
[2018-02-17] MEDS: ENOXAPARIN 40 MG/0.4 ML SQ SCH (20:09)
[2018-02-18 01:08] VITALS: BP 134/79
[2018-02-18 07:06] VITALS: BP 155/80
[2018-02-18] MEDS: ERTAPENEM 1 GM in SODIUM CHLORIDE 0.9% 50 ML IV SCH (10:02)
[2018-02-18] MEDS: VANCOMYCIN 50 MG/ML ORAL SUSP PO SCH ×2 (10:02→20:37)
[2018-02-18] MEDS: LOSARTAN 25MG TABLET PO SCH (10:03)
[2018-02-18] MEDS: INSULIN GLARGINE 100 UNITS/ML, PEN SQ-INSULIN SCH ×2 (10:07→20:38)
[2018-02-18] MEDS: OXYcodone IR 5MG TABLET PO PRN ×2 (10:21→19:37)
[2018-02-18 13:31] VITALS: BP 122/73
[2018-02-18 19:51] VITALS: BP 132/81
[2018-02-18] MEDS: NICOTINE 7 MG/24 HR PATCH.TD24 TD SCH (20:37)
[2018-02-18] MEDS: ENOXAPARIN 40 MG/0.4 ML SQ SCH (20:37)
[2018-02-19 01:40] VITALS: BP 144/80
[2018-02-19 02:35] VITALS: BP 126/74
[2018-02-19 07:36] VITALS: BP 126/75
[2018-02-19] MEDS: LOSARTAN 25MG TABLET PO SCH (08:46)
[2018-02-19] MEDS: VANCOMYCIN 50 MG/ML ORAL SUSP PO SCH ×2 (08:46→20:37)
[2018-02-19] MEDS: OXYcodone IR 5MG TABLET PO PRN ×2 (08:55→20:36)
[2018-02-19 09:16] LABS: BASOPHILS # (AUTO) 0.06 x10^3/uL (0-0.1); BASOPHILS % (AUTO) 1 % (0-1); EOSINOPHILS # (AUTO) 0.08 x10^3/uL (0-0.4); EOSINOPHILS % (AUTO) 1 % (1-7); LYMPHOCYTES # (AUTO) 1.49 x10^3/uL (1-3.4); LYMPHOCYTES % (AUTO) 24 % (22-44); MD NO; MEAN CORPUSCULAR HEMOGLOBIN 28.5 pg (27.0-34.8); MEAN CORPUSCULAR HGB CONC 33.5 g/dL (32.4-35.8); MEAN CORPUSCULAR VOLUME 85.1 fL (80-100); MEAN PLATELET VOLUME 8.4 fL (7.4-10.4); MONOCYTES # (AUTO) 0.48 x10^3/uL (0.2-0.8); MONOCYTES % (AUTO) 8 % (2-9); NEUTROPHILS # (AUTO) 4.03 x10^3/uL (1.8-6.8); NEUTROPHILS % (AUTO) 66 % (42-75); PLATELET COUNT 155 x10^3/uL (130-400); RED BLOOD COUNT 3.98 x10^6/uL (3.82-5.3)
[2018-02-19 09:27] LABS: ANION GAP 6 mmol/L (5-15); CALCIUM 8.1 mg/dL (8.5-10.1); CHLORIDE 101 mmol/L (98-107); CREATININE 0.48 mg/dL (0.55-1.02)
[2018-02-19] MEDS ORDERED: CATHFLO-ALTEPLASE 2 MG/2 ML CATHFLUSH ONE (09:30)
[2018-02-19] MEDS: INSULIN GLARGINE 100 UNITS/ML, PEN SQ-INSULIN SCH ×2 (09:51→20:45)
[2018-02-19] MEDS: ERTAPENEM 1 GM in SODIUM CHLORIDE 0.9% 50 ML IV SCH (09:51)
[2018-02-19 14:46] VITALS: BP 138/78
[2018-02-19 18:36] VITALS: BP 122/76
[2018-02-19] MEDS: ENOXAPARIN 40 MG/0.4 ML SQ SCH (20:45)
[2018-02-19] MEDS: NICOTINE 7 MG/24 HR PATCH.TD24 TD SCH (20:46)
[2018-02-20 02:16] VITALS: BP 154/76
[2018-02-20 06:07] LABS: BASOPHILS # (AUTO) 0.05 x10^3/uL (0-0.1); BASOPHILS % (AUTO) 1 % (0-1); EOSINOPHILS # (AUTO) 0.08 x10^3/uL (0-0.4); EOSINOPHILS % (AUTO) 1 % (1-7); LYMPHOCYTES # (AUTO) 1.63 x10^3/uL (1-3.4); LYMPHOCYTES % (AUTO) 29 % (22-44); MD NO; MEAN CORPUSCULAR HEMOGLOBIN 28.9 pg (27.0-34.8); MEAN CORPUSCULAR HGB CONC 33.9 g/dL (32.4-35.8); MEAN CORPUSCULAR VOLUME 85.5 fL (80-100); MEAN PLATELET VOLUME 8.2 fL (7.4-10.4); MONOCYTES # (AUTO) 0.57 x10^3/uL (0.2-0.8); MONOCYTES % (AUTO) 10 % (2-9); NEUTROPHILS # (AUTO) 3.34 x10^3/uL (1.8-6.8); NEUTROPHILS % (AUTO) 59 % (42-75); PLATELET COUNT 139 x10^3/uL (130-400); RED BLOOD COUNT 3.35 x10^6/uL (3.82-5.3)
[2018-02-20 06:19] LABS: ALANINE AMINOTRANSFERASE 27 U/L (12-78); ANION GAP 5 mmol/L (5-15); CHLORIDE 103 mmol/L (98-107); CREATININE 0.39 mg/dL (0.55-1.02)
[2018-02-20 06:28] LABS: ALKALINE PHOSPHATASE 187 U/L (45-117); BILIRUBIN,TOTAL 0.3 mg/dL (0.2-1.0); HCT (SEDRATE) 28.6 % (34.6-47.8); TOTAL PROTEIN 5.9 g/dL (6.4-8.2)
[2018-02-20 08:02] VITALS: BP 146/80
[2018-02-20] MEDS: INSULIN GLARGINE 100 UNITS/ML, PEN SQ-INSULIN SCH ×2 (09:17→20:52)
[2018-02-20] MEDS: VANCOMYCIN 50 MG/ML ORAL SUSP PO SCH ×2 (09:18→20:52)
[2018-02-20] MEDS: LOSARTAN 25MG TABLET PO SCH (09:18)
[2018-02-20] MEDS: ERTAPENEM 1 GM in SODIUM CHLORIDE 0.9% 50 ML IV SCH (09:18)
[2018-02-20] MEDS: OXYcodone IR 5MG TABLET PO PRN ×2 (09:27→20:51)
[2018-02-20 15:09] VITALS: BP 148/72
[2018-02-20 19:23] VITALS: BP 148/76
[2018-02-20] MEDS: ENOXAPARIN 40 MG/0.4 ML SQ SCH (20:51)
[2018-02-20] MEDS: NICOTINE 7 MG/24 HR PATCH.TD24 TD SCH (20:59)
[2018-02-21 00:51] VITALS: BP 134/73
[2018-02-21 07:10] VITALS: BP 126/74
[2018-02-21] MEDS: LOSARTAN 25MG TABLET PO SCH (09:16)
[2018-02-21] MEDS: ERTAPENEM 1 GM in SODIUM CHLORIDE 0.9% 50 ML IV SCH (09:16)
[2018-02-21] MEDS: OXYcodone IR 5MG TABLET PO PRN ×2 (09:16→21:12)
[2018-02-21] MEDS: VANCOMYCIN 50 MG/ML ORAL SUSP PO SCH ×2 (09:16→21:08)
[2018-02-21] MEDS: INSULIN GLARGINE 100 UNITS/ML, PEN SQ-INSULIN SCH ×2 (09:29→21:12)
[2018-02-21 12:37] VITALS: BP 133/85
[2018-02-21 20:26] VITALS: BP 174/80
[2018-02-21] MEDS: ENOXAPARIN 40 MG/0.4 ML SQ SCH (21:08)
[2018-02-21] MEDS: NICOTINE 7 MG/24 HR PATCH.TD24 TD SCH (21:19)
[2018-02-22 01:51] VITALS: BP 147/74
[2018-02-22 08:38] VITALS: BP 111/70
[2018-02-22] MEDS: VANCOMYCIN 50 MG/ML ORAL SUSP PO SCH ×2 (09:26→21:34)
[2018-02-22] MEDS: ERTAPENEM 1 GM in SODIUM CHLORIDE 0.9% 50 ML IV SCH (09:26)
[2018-02-22] MEDS: INSULIN GLARGINE 100 UNITS/ML, PEN SQ-INSULIN SCH ×2 (09:27→21:41)
[2018-02-22] MEDS: LOSARTAN 25MG TABLET PO SCH (09:27)
[2018-02-22 13:24] VITALS: BP 142/88
[2018-02-22 18:55] VITALS: BP 136/77
[2018-02-22] MEDS: NICOTINE 7 MG/24 HR PATCH.TD24 TD SCH (21:33)
[2018-02-22] MEDS: ENOXAPARIN 40 MG/0.4 ML SQ SCH (21:34)
[2018-02-22] MEDS: OXYcodone IR 5MG TABLET PO PRN (21:41)
[2018-02-23 01:59] VITALS: BP 148/80
[2018-02-23 04:23] LABS: BASOPHILS # (AUTO) 0.05 x10^3/uL (0-0.1); BASOPHILS % (AUTO) 1 % (0-1); EOSINOPHILS # (AUTO) 0.24 x10^3/uL (0-0.4); EOSINOPHILS % (AUTO) 3 % (1-7); LYMPHOCYTES % (AUTO) 24 % (22-44); MD NO; MEAN CORPUSCULAR HGB CONC 33.7 g/dL (32.4-35.8); MEAN PLATELET VOLUME 8.2 fL (7.4-10.4); MONOCYTES # (AUTO) 0.66 x10^3/uL (0.2-0.8); MONOCYTES % (AUTO) 7 % (2-9); NEUTROPHILS # (AUTO) 5.93 x10^3/uL (1.8-6.8); NEUTROPHILS % (AUTO) 65 % (42-75); PLATELET COUNT 167 x10^3/uL (130-400); RED BLOOD COUNT 3.62 x10^6/uL (3.82-5.3); RED CELL DISTRIBUTION WIDTH 17.5 % (9.6-15.2)
[2018-02-23 04:32] LABS: ALBUMIN 2.3 g/dL (3.4-5.0); ANION GAP 5 mmol/L (5-15); CALCIUM 8.5 mg/dL (8.5-10.1); CHLORIDE 103 mmol/L (98-107)
[2018-02-23 04:36] LABS: ALANINE AMINOTRANSFERASE 41 U/L (12-78); ALKALINE PHOSPHATASE 208 U/L (45-117); BILIRUBIN,TOTAL 0.3 mg/dL (0.2-1.0); CREATININE 0.53 mg/dL (0.55-1.02); TOTAL PROTEIN 6.6 g/dL (6.4-8.2)
[2018-02-23 08:32] VITALS: BP 112/76
[2018-02-23] MEDS: ERTAPENEM 1 GM in SODIUM CHLORIDE 0.9% 50 ML IV SCH (09:42)
[2018-02-23] MEDS: VANCOMYCIN 50 MG/ML ORAL SUSP PO SCH ×2 (09:43→20:50)
[2018-02-23] MEDS: INSULIN GLARGINE 100 UNITS/ML, PEN SQ-INSULIN SCH ×2 (09:43→20:56)
[2018-02-23] MEDS: LOSARTAN 25MG TABLET PO SCH (09:43)
[2018-02-23] MEDS: NICOTINE 7 MG/24 HR PATCH.TD24 TD SCH (09:59)
[2018-02-23 17:07] VITALS: BP 157/92
[2018-02-23 19:23] VITALS: BP 127/71
[2018-02-23] MEDS: ENOXAPARIN 40 MG/0.4 ML SQ SCH (20:50)
[2018-02-23] MEDS: OXYcodone IR 5MG TABLET PO PRN (23:04)
[2018-02-24 02:45] VITALS: BP 136/77
[2018-02-24 04:26] LABS: BASOPHILS # (AUTO) 0.02 x10^3/uL (0-0.1); BASOPHILS % (AUTO) 0 % (0-1); EOSINOPHILS % (AUTO) 3 % (1-7); LYMPHOCYTES # (AUTO) 2.11 x10^3/uL (1-3.4); LYMPHOCYTES % (AUTO) 24 % (22-44); MD NO; MEAN CORPUSCULAR HEMOGLOBIN 29.2 pg (27.0-34.8); MEAN CORPUSCULAR HGB CONC 33.5 g/dL (32.4-35.8); MEAN CORPUSCULAR VOLUME 87.1 fL (80-100); MEAN PLATELET VOLUME 8.6 fL (7.4-10.4); MONOCYTES # (AUTO) 0.63 x10^3/uL (0.2-0.8); MONOCYTES % (AUTO) 7 % (2-9); NEUTROPHILS # (AUTO) 5.67 x10^3/uL (1.8-6.8); NEUTROPHILS % (AUTO) 65 % (42-75); PLATELET COUNT 160 x10^3/uL (130-400); RED BLOOD COUNT 3.55 x10^6/uL (3.82-5.3); RED CELL DISTRIBUTION WIDTH 17.5 % (9.6-15.2)
[2018-02-24 04:39] LABS: ALANINE AMINOTRANSFERASE 47 U/L (12-78); ALBUMIN 2.3 g/dL (3.4-5.0); ANION GAP 6 mmol/L (5-15); CALCIUM 8.2 mg/dL (8.5-10.1); CHLORIDE 102 mmol/L (98-107); CREATININE 0.41 mg/dL (0.55-1.02)
[2018-02-24 04:41] LABS: ALKALINE PHOSPHATASE 219 U/L (45-117); BILIRUBIN,TOTAL 0.3 mg/dL (0.2-1.0); TOTAL PROTEIN 6.5 g/dL (6.4-8.2)
[2018-02-24] MEDS ORDERED: VANC1VIA3 PO (07:19)
[2018-02-24] MEDS ORDERED: INSU100I13 SQ-INSULIN ×2 (07:19)
[2018-02-24] MEDS ORDERED: LOSA25TA2 PO (07:19)
[2018-02-24] MEDS ORDERED: ERTA1VIA IV (07:19)
[2018-02-24 08:38] VITALS: BP 133/74
[2018-02-24] MEDS: VANCOMYCIN 50 MG/ML ORAL SUSP PO SCH ×2 (09:25→21:06)
[2018-02-24] MEDS: ERTAPENEM 1 GM in SODIUM CHLORIDE 0.9% 50 ML IV SCH (09:25)
[2018-02-24] MEDS: NICOTINE 7 MG/24 HR PATCH.TD24 TD SCH (09:26)
[2018-02-24] MEDS: LOSARTAN 25MG TABLET PO SCH (09:26)
[2018-02-24] MEDS: INSULIN GLARGINE 100 UNITS/ML, PEN SQ-INSULIN SCH ×2 (09:34→21:12)
[2018-02-24 15:05] VITALS: BP 133/82
[2018-02-24 19:50] VITALS: BP 145/75
[2018-02-24] MEDS: ENOXAPARIN 40 MG/0.4 ML SQ SCH (21:06)
[2018-02-25 03:04] VITALS: BP 112/68
[2018-02-25 04:29] LABS: BASOPHILS # (AUTO) 0.07 x10^3/uL (0-0.1); BASOPHILS % (AUTO) 1 % (0-1); EOSINOPHILS # (AUTO) 0.37 x10^3/uL (0-0.4); EOSINOPHILS % (AUTO) 4 % (1-7); LYMPHOCYTES # (AUTO) 2.04 x10^3/uL (1-3.4); LYMPHOCYTES % (AUTO) 22 % (22-44); MD NO; MEAN CORPUSCULAR HEMOGLOBIN 28.9 pg (27.0-34.8); MEAN CORPUSCULAR HGB CONC 33.2 g/dL (32.4-35.8); MEAN CORPUSCULAR VOLUME 87.1 fL (80-100); MEAN PLATELET VOLUME 8.4 fL (7.4-10.4); MONOCYTES # (AUTO) 0.65 x10^3/uL (0.2-0.8); MONOCYTES % (AUTO) 7 % (2-9); NEUTROPHILS # (AUTO) 6.12 x10^3/uL (1.8-6.8); NEUTROPHILS % (AUTO) 66 % (42-75); PLATELET COUNT 167 x10^3/uL (130-400); RED BLOOD COUNT 3.62 x10^6/uL (3.82-5.3); RED CELL DISTRIBUTION WIDTH 17.6 % (9.6-15.2)
[2018-02-25 04:35] LABS: ANION GAP 7 mmol/L (5-15); CALCIUM 8.2 mg/dL (8.5-10.1); CHLORIDE 102 mmol/L (98-107); CREATININE 0.38 mg/dL (0.55-1.02)
[2018-02-25 07:33] VITALS: BP 130/76
[2018-02-25] MEDS: ERTAPENEM 1 GM in SODIUM CHLORIDE 0.9% 50 ML IV SCH (08:39)
[2018-02-25] MEDS: VANCOMYCIN 50 MG/ML ORAL SUSP PO SCH (08:40)
[2018-02-25] MEDS: LOSARTAN 25MG TABLET PO SCH (08:40)
[2018-02-25] MEDS: NICOTINE 7 MG/24 HR PATCH.TD24 TD SCH (08:40)
[2018-02-25] MEDS: INSULIN GLARGINE 100 UNITS/ML, PEN SQ-INSULIN SCH (08:52)
[2018-02-25] MEDS ORDERED: ERGOCALCIFEROL 50,000 UNIT CAPSULE PO SCH (10:00)
[2018-02-25 13:44] VITALS: BP 121/73
[2018-02-25 16:34] VITALS: BP 125/75
== END 2018-02-25 17:39 | DRG 853 ==
LOC: ED 23:59 → EDIP 02-03 00:34 → 4NOR 02-03 02:22
PROVIDERS: ADMIT Internal Medicine; ATTEND Internal Medicine
PROC: 0T9100Z Drainage of Left Kidney with Drainage Device, Open Approach (ICD-10-PCS; principal; 2018-02-12 13:00)
PROC: 02HV33Z Insertion of Infusion Device into Superior Vena Cava, Percutaneous Approach (ICD-10-PCS; 2018-02-17)
PROC: B5181ZA Fluoroscopy of Superior Vena Cava using Low Osmolar Contrast, Guidance (ICD-10-PCS; 2018-02-17)
DX: A41.51 Sepsis due to Escherichia coli [E. coli] (principal); E43 Unspecified severe protein-calorie malnutrition; J69.0 Pneumonitis due to inhalation of food and vomit; J90 Pleural effusion, not elsewhere classified; N15.1 Renal and perinephric abscess; A04.72 Enterocolitis due to Clostridium difficile, not specified as recurrent; R18.8 Other ascites; K74.60 Unspecified cirrhosis of liver; Z68.1 Body mass index [BMI] 19.9 or less, adult; E87.1 Hypo-osmolality and hyponatremia; K56.7 Ileus, unspecified; N10 Acute pyelonephritis; B19.20 Unspecified viral hepatitis C without hepatic coma; E11.9 Type 2 diabetes mellitus without complications; F12.10 Cannabis abuse, uncomplicated; F15.90 Other stimulant use, unspecified, uncomplicated; F17.200 Nicotine dependence, unspecified, uncomplicated; I10 Essential (primary) hypertension; K80.20 Calculus of gallbladder without cholecystitis without obstruction; Z51.5 Encounter for palliative care; Z66 Do not resuscitate; Z96.659 Presence of unspecified artificial knee joint; R16.1 Splenomegaly, not elsewhere classified; R59.1 Generalized enlarged lymph nodes; Z59.0 Homelessness; Z79.4 Long term (current) use of insulin; Z79.899 Other long term (current) drug therapy; Z90.710 Acquired absence of both cervix and uterus
CPT/HCPCS: 36415; 36569; 36600; 70450; 71260; 71275; 74022; 74176; 74177; 76937; 77001; 80048; 80053; 80061; 80307; 81001; 82040; 82306; 82330; 82378; 82803; 82947; 82962; 83036; 83605; 83615; 83690; 83735; 84100; 84132; 84295; 84439; 84443; 84550; 85014; 85025; 85610; 85651; 85730; 86140; 86301; 86304; 86308; 86704; 86705; 86706; 86708; 86709; 86803; 86850; 86900; 87040; 87070; 87075; 87077; 87086; 87186; 87205; 87324; 87340; 87493; 87521; 87806; 93306; 96361; 96365; 96375; C1729; J0696; J1100; J1335; J1644; J1650; J2250; J2704; J2710; J2997; J3010; J3370; J3490; Q9967; C1751; G0475; J1815; J2060; J2370; J2765; J3475; J7030; J7120; S0074

== ENCOUNTER 2018-09-15 07:38 | Inpatient (IN) | payer MEDICAID ==
[~2018-09-15] VITALS: Ht 162.6 cm; Wt 47.0 kg
[~2018-09-15 07:38] MED LIST changes: +ERTA1VIA IV; +INSU100I13 SQ-INSULIN; +LOSA25TA2 PO; +VANC1VIA3 PO
[2018-09-15 09:10] LABS: MEAN CORPUSCULAR VOLUME 85.3 fL (80-100); MEAN PLATELET VOLUME 8.5 fL (7.4-10.4); PLATELET COUNT 129 x10^3/uL (130-400); RED BLOOD COUNT 4.58 x10^6/uL (3.82-5.3); RED CELL DISTRIBUTION WIDTH 13.6 % (9.6-15.2)
[2018-09-15 09:17] LABS: ANION GAP 10 mmol/L (5-15); CALCIUM 7.7 mg/dL (8.5-10.1); CHLORIDE 105 mmol/L (98-107); CREATININE 0.63 mg/dL (0.55-1.02)
[2018-09-15] MEDS ORDERED: CEFTRIAXONE PMX 1GM/50ML 50 ML ONE (09:48)
[2018-09-15] MEDS ORDERED: CEFTRIAXONE 1,000 MG in SODIUM CHLORIDE 0.9% 50 ML IVPB ONE (10:00)
[2018-09-15] MEDS ORDERED: LOVA10TA PO (10:02)
[2018-09-15] MEDS ORDERED: INSU300I SQ (10:02)
[2018-09-15] MEDS ORDERED: CEFTRIAXONE PMX 1GM/50ML 50 ML IVPB ONE (10:18)
[2018-09-15 10:22] LABS: MD YES
[2018-09-15 10:23] LABS: BAND#(MANUAL) 3.66 x10^3/uL; BANDS%(MANUAL) 17 % (0-7); LYMPH#(MANUAL) 0.43 x10^3/uL (1-3.4); LYMPHS% (MANUAL) 2 % (22-44); MONOS#(MANUAL) 1.72 x10^3/uL (0.3-2.7); MONOS% (MANUAL) 8 % (2-9); SEGS% (MANUAL) 73 % (42-75)
[2018-09-15 10:24] LABS: <PLATELET ESTIMATE> DECREASED; <PLT MORPHOLOGY> NORMAL PLT MORPH; <RBC MORPHOLOGY> NORMAL
[2018-09-15 10:34] VITALS: BP 166/84
[2018-09-15 10:39] VITALS: BP 148/78
[2018-09-15] MEDS ORDERED: ONDANSETRON 2MG/ML, 2ML IVPB PRN (11:30)
[2018-09-15] MEDS ORDERED: DOCUSATE 100 MG CAPSULE PO PRN (11:30)
[2018-09-15] MEDS ORDERED: BISACODYL 10 MG SUPP PR PRN (11:30)
[2018-09-15] MEDS ORDERED: PHARMACY MAY ADJ FOR RENAL FX MC PRN (11:30)
[2018-09-15] MEDS: NICOTINE 14MG/24 HR PATCH.TD24 TD SCH (13:46)
[2018-09-15] MEDS: SODIUM CHLORIDE 0.9% 1,000 ML IV SCH ×2 (13:46→23:23)
[2018-09-15] MEDS: DOXYCYCLINE 100 MG in DEXTROSE 5% 250 ML IV SCH (13:46)
[2018-09-15] MEDS: ENOXAPARIN 40 MG/0.4 ML SQ SCH (13:47)
[2018-09-15] MEDS: GUAIFENESIN 200 MG TABLET PO SCH ×3 (13:47→23:22)
[2018-09-15] MEDS: ACETAMINOPHEN 325 MG TABLET PO PRN ×2 (13:47→18:03)
[2018-09-15 13:59] VITALS: BP 148/78
[2018-09-15] MEDS ORDERED: NEUTRA PHOS K 250 MG TABLET PO SCH (14:00)
[2018-09-15] MEDS ORDERED: hydrALAzine 20 MG/ML, 1ML IV PRN (14:00)
[2018-09-15] MEDS ORDERED: MAGNESIUM SULFATE PMX 2GM/50ML 50 ML IV ONE (14:00)
[2018-09-15] MEDS: INSULIN LISPRO 100 UNITS/ML, PEN SQ-INSULIN SCH ×2 (17:57→23:23)
[2018-09-15] MEDS: POTASSIUM CHLORIDE 20 MEQ TAB.ER.PRT PO SCH (17:57)
[2018-09-15 18:52] VITALS: BP 110/67
[2018-09-15] MEDS: LOVASTATIN 10 MG TABLET PO SCH (23:22)
[2018-09-15] MEDS: INSULIN GLARGINE 100 UNITS/ML, PEN SQ-INSULIN SCH (23:47)
[2018-09-16 01:10] VITALS: BP 126/73
[2018-09-16] MEDS: DOXYCYCLINE 100 MG in DEXTROSE 5% 250 ML IV SCH (02:06)
[2018-09-16 05:23] LABS: MEAN CORPUSCULAR HEMOGLOBIN 29.6 pg (27.0-34.8); MEAN CORPUSCULAR HGB CONC 34.3 g/dL (32.4-35.8); MEAN CORPUSCULAR VOLUME 86.3 fL (80-100); PLATELET COUNT 134 x10^3/uL (130-400); RED BLOOD COUNT 4.69 x10^6/uL (3.82-5.3)
[2018-09-16 05:31] LABS: ANION GAP 8 mmol/L (5-15); CALCIUM 8.1 mg/dL (8.5-10.1); CHLORIDE 107 mmol/L (98-107)
[2018-09-16 05:33] LABS: CREATININE 0.79 mg/dL (0.55-1.02)
[2018-09-16] MEDS: SODIUM CHLORIDE 0.9% 1,000 ML IV SCH ×2 (05:54→17:00)
[2018-09-16] MEDS: GUAIFENESIN 200 MG TABLET PO SCH (05:55)
[2018-09-16 06:04] LABS: HEMOGLOBIN A1C 9.6 % (4.2-6.3)
[2018-09-16 06:38] LABS: BASOPHILS # (AUTO) 0.07 x10^3/uL (0-0.1); BASOPHILS % (AUTO) 0 % (0-1); EOSINOPHILS # (AUTO) 0.13 x10^3/uL (0-0.4); EOSINOPHILS % (AUTO) 1 % (1-7); LYMPHOCYTES # (AUTO) 1.93 x10^3/uL (1-3.4); LYMPHOCYTES % (AUTO) 9 % (22-44); MD SCAN; MONOCYTES # (AUTO) 1.71 x10^3/uL (0.2-0.8); MONOCYTES % (AUTO) 8 % (2-9); NEUTROPHILS # (AUTO) 18.84 x10^3/uL (1.8-6.8); NEUTROPHILS % (AUTO) 83 % (42-75)
[2018-09-16] MEDS: INSULIN LISPRO 100 UNITS/ML, PEN SQ-INSULIN SCH ×4 (07:00→20:22)
[2018-09-16 07:46] VITALS: BP 161/77
[2018-09-16] MEDS: POTASSIUM CHLORIDE 20 MEQ TAB.ER.PRT PO SCH (08:08)
[2018-09-16] MEDS: LOSARTAN 25MG TABLET PO SCH (08:08)
[2018-09-16] MEDS: ACETAMINOPHEN 325 MG TABLET PO PRN (08:08)
[2018-09-16] MEDS: CEFTRIAXONE PMX 1GM/50ML 50 ML IVPB SCH (10:13)
[2018-09-16] MEDS: GUAIFENESIN ER 600 MG TABLET PO SCH ×2 (11:00→20:23)
[2018-09-16] MEDS ORDERED: CEFTRIAXONE 1,000 MG in SODIUM CHLORIDE 0.9% 50 ML IVPB SCH (11:30)
[2018-09-16] MEDS: ENOXAPARIN 40 MG/0.4 ML SQ SCH (13:00)
[2018-09-16] MEDS: NICOTINE 14MG/24 HR PATCH.TD24 TD SCH (13:00)
[2018-09-16 14:06] VITALS: BP 142/77
[2018-09-16 19:46] VITALS: BP 119/81
[2018-09-16] MEDS: LOVASTATIN 10 MG TABLET PO SCH (20:21)
[2018-09-16] MEDS: DOXYCYCLINE 100MG TABLET PO SCH (20:22)
[2018-09-16] MEDS: INSULIN GLARGINE 100 UNITS/ML, PEN SQ-INSULIN SCH (20:23)
[2018-09-16 20:45] VITALS: BP 169/91
[2018-09-17 01:38] VITALS: BP 160/80
[2018-09-17] MEDS: SODIUM CHLORIDE 0.9% 1,000 ML IV SCH ×2 (02:46→19:42)
[2018-09-17 05:32] LABS: MEAN CORPUSCULAR HEMOGLOBIN 29.3 pg (27.0-34.8); MEAN CORPUSCULAR HGB CONC 33.8 g/dL (32.4-35.8); MEAN CORPUSCULAR VOLUME 86.6 fL (80-100); MEAN PLATELET VOLUME 9.4 fL (7.4-10.4); PLATELET COUNT 141 x10^3/uL (130-400); RED BLOOD COUNT 4.54 x10^6/uL (3.82-5.3); RED CELL DISTRIBUTION WIDTH 14.2 % (9.6-15.2)
[2018-09-17 05:39] LABS: CHLORIDE 110 mmol/L (98-107)
[2018-09-17 05:48] LABS: ANION GAP 9 mmol/L (5-15); CREATININE 0.42 mg/dL (0.55-1.02)
[2018-09-17 06:21] LABS: BASOPHILS # (AUTO) 0.04 x10^3/uL (0-0.1); BASOPHILS % (AUTO) 0 % (0-1); EOSINOPHILS # (AUTO) 0.07 x10^3/uL (0-0.4); EOSINOPHILS % (AUTO) 0 % (1-7); LYMPHOCYTES # (AUTO) 1.58 x10^3/uL (1-3.4); LYMPHOCYTES % (AUTO) 9 % (22-44); MD SCAN; MONOCYTES # (AUTO) 1.13 x10^3/uL (0.2-0.8); MONOCYTES % (AUTO) 6 % (2-9); NEUTROPHILS # (AUTO) 15.01 x10^3/uL (1.8-6.8); NEUTROPHILS % (AUTO) 84 % (42-75)
[2018-09-17] MEDS: INSULIN LISPRO 100 UNITS/ML, PEN SQ-INSULIN SCH ×4 (07:00→21:00)
[2018-09-17 07:30] VITALS: BP 183/90
[2018-09-17] MEDS ORDERED: MAGNESIUM SULFATE PMX 2GM/50ML 50 ML IV ONE (08:30)
[2018-09-17] MEDS ORDERED: POTASSIUM PHOSPHATE 44 MEQ in SODIUM CHLORIDE 0.9% 500 ML IV ONE (08:30)
[2018-09-17] MEDS: GUAIFENESIN ER 600 MG TABLET PO SCH ×2 (09:00→21:00)
[2018-09-17] MEDS: LOSARTAN 25MG TABLET PO SCH (09:04)
[2018-09-17] MEDS: DOXYCYCLINE 100MG TABLET PO SCH ×2 (09:04→20:47)
[2018-09-17] MEDS: CEFTRIAXONE PMX 1GM/50ML 50 ML IVPB SCH (09:04)
[2018-09-17] MEDS: ENOXAPARIN 40 MG/0.4 ML SQ SCH (11:48)
[2018-09-17] MEDS: NICOTINE 14MG/24 HR PATCH.TD24 TD SCH (11:48)
[2018-09-17 12:28] VITALS: BP 183/91
[2018-09-17] MEDS ORDERED: AMLODIPINE 5 MG TABLET PO ONE (12:30)
[2018-09-17 14:28] LABS: CLOSTRIDIUM DIFFICILE ANTIGEN NEGATIVE; CLOSTRIDIUM DIFFICILE TOXIN NEGATIVE (Negative)
[2018-09-17] MEDS ORDERED: LABETALOL 5MG/ML, 20ML IVPush PRN (18:00)
[2018-09-17 19:19] VITALS: BP 173/89
[2018-09-17 19:45] VITALS: BP 133/67
[2018-09-17] MEDS: LOVASTATIN 10 MG TABLET PO SCH (20:47)
[2018-09-17] MEDS: INSULIN GLARGINE 100 UNITS/ML, PEN SQ-INSULIN SCH (20:48)
[2018-09-18 01:40] VITALS: BP 164/84
[2018-09-18] MEDS: SODIUM CHLORIDE 0.9% 1,000 ML IV SCH ×2 (05:45→16:00)
[2018-09-18] MEDS: INSULIN LISPRO 100 UNITS/ML, PEN SQ-INSULIN SCH ×4 (07:00→21:03)
[2018-09-18 07:12] VITALS: BP 179/92
[2018-09-18] MEDS: LOSARTAN 25MG TABLET PO SCH (07:48)
[2018-09-18] MEDS: DOXYCYCLINE 100MG TABLET PO SCH ×2 (07:48→21:04)
[2018-09-18] MEDS: AMLODIPINE 10 MG TAB PO SCH (07:48)
[2018-09-18] MEDS: GUAIFENESIN ER 600 MG TABLET PO SCH ×2 (07:48→21:04)
[2018-09-18 08:43] LABS: BASOPHILS # (AUTO) 0.05 x10^3/uL (0-0.1); BASOPHILS % (AUTO) 1 % (0-1); EOSINOPHILS # (AUTO) 0.12 x10^3/uL (0-0.4); EOSINOPHILS % (AUTO) 1 % (1-7); LYMPHOCYTES # (AUTO) 1.61 x10^3/uL (1-3.4); LYMPHOCYTES % (AUTO) 14 % (22-44); MD NO; MEAN CORPUSCULAR HEMOGLOBIN 28.8 pg (27.0-34.8); MEAN CORPUSCULAR HGB CONC 33.5 g/dL (32.4-35.8); MEAN CORPUSCULAR VOLUME 85.9 fL (80-100); MEAN PLATELET VOLUME 9.1 fL (7.4-10.4); MONOCYTES # (AUTO) 0.67 x10^3/uL (0.2-0.8); MONOCYTES % (AUTO) 6 % (2-9); NEUTROPHILS # (AUTO) 8.97 x10^3/uL (1.8-6.8); NEUTROPHILS % (AUTO) 79 % (42-75); PLATELET COUNT 149 x10^3/uL (130-400); RED BLOOD COUNT 4.65 x10^6/uL (3.82-5.3); RED CELL DISTRIBUTION WIDTH 14.1 % (9.6-15.2)
[2018-09-18] MEDS: CEFTRIAXONE PMX 1GM/50ML 50 ML IVPB SCH (09:17)
[2018-09-18] MEDS: ACETAMINOPHEN 325 MG TABLET PO PRN (12:26)
[2018-09-18] MEDS: NICOTINE 14MG/24 HR PATCH.TD24 TD SCH (12:26)
[2018-09-18] MEDS: ENOXAPARIN 40 MG/0.4 ML SQ SCH (12:28)
[2018-09-18 13:23] VITALS: BP 158/74
[2018-09-18 18:45] VITALS: BP 162/88
[2018-09-18] MEDS: LOVASTATIN 10 MG TABLET PO SCH (21:04)
[2018-09-18] MEDS: INSULIN GLARGINE 100 UNITS/ML, PEN SQ-INSULIN SCH (21:04)
[2018-09-19] MEDS: SODIUM CHLORIDE 0.9% 1,000 ML IV SCH ×2 (01:50→12:00)
[2018-09-19] MEDS: ACETAMINOPHEN 325 MG TABLET PO PRN (02:44)
[2018-09-19 02:59] VITALS: BP 167/81
[2018-09-19 06:30] VITALS: BP 171/94
[2018-09-19] MEDS: INSULIN LISPRO 100 UNITS/ML, PEN SQ-INSULIN SCH ×2 (07:00→11:00)
[2018-09-19] MEDS: AMLODIPINE 10 MG TAB PO SCH (08:38)
[2018-09-19] MEDS: CEFTRIAXONE PMX 1GM/50ML 50 ML IVPB SCH (08:38)
[2018-09-19] MEDS: LOSARTAN 25MG TABLET PO SCH (08:38)
[2018-09-19] MEDS: DOXYCYCLINE 100MG TABLET PO SCH (08:38)
[2018-09-19] MEDS: GUAIFENESIN ER 600 MG TABLET PO SCH (08:38)
[2018-09-19] MEDS: ENOXAPARIN 40 MG/0.4 ML SQ SCH (11:30)
[2018-09-19] MEDS: NICOTINE 14MG/24 HR PATCH.TD24 TD SCH (11:30)
[2018-09-19] MEDS ORDERED: DOXY100T PO (11:48)
[2018-09-19] MEDS ORDERED: CEFD300C37 PO (11:48)
[2018-09-19] MEDS ORDERED: AMLO10TA6 PO (11:48)
[2018-09-19] MEDS ORDERED: GUAI600T31 PO (11:48)
[2018-09-19 12:14] VITALS: BP 155/73
== END 2018-09-19 16:10 | disposition home or self-care (01) | DRG 871 ==
LOC: ED 08:27 → EDIP 09:34 → 3NE 10:15
PROVIDERS: ADMIT Internal Medicine; ATTEND Internal Medicine
DX: A41.9 Sepsis, unspecified organism (principal); J18.1 Lobar pneumonia, unspecified organism; E44.0 Moderate protein-calorie malnutrition; E87.6 Hypokalemia; E11.9 Type 2 diabetes mellitus without complications; I10 Essential (primary) hypertension; K80.20 Calculus of gallbladder without cholecystitis without obstruction; B18.2 Chronic viral hepatitis C; D69.6 Thrombocytopenia, unspecified; E78.5 Hyperlipidemia, unspecified; F17.200 Nicotine dependence, unspecified, uncomplicated; Z59.0 Homelessness; Z86.19 Personal history of other infectious and parasitic diseases; Z71.6 Tobacco abuse counseling; Z79.899 Other long term (current) drug therapy
CPT/HCPCS: 36415; 71045; 80048; 82040; 82947; 82962; 83036; 83605; 83735; 84100; 84145; 85025; 87040; 87324; 99285; G0378; J0696; J1650; J7060; J0360; J1815; J3475; J7030; J7040

== ENCOUNTER 2019-10-05 08:06 | Inpatient (IN) | payer MEDICAID ==
[~2019-10-05] VITALS: Ht 162.6 cm; Wt 43.5 kg
[~2019-10-05 08:06] MED LIST changes: +AMLO10TA8 PO; +CEFD300C37 PO; +DOXY100T PO; +GUAI600T31 PO; +INSU300I SQ; +LOVA10TA PO
[2019-10-05] MEDS ORDERED: SODIUM CHLORIDE 0.9% 1,000ML IVBOLUS ONE ×2 (08:30→09:30)
[2019-10-05] MEDS ORDERED: SODIUM CHLORIDE FLUSH 10ML SYR IVF ONE (08:30)
--- NOTE | 2019-10-05 08:30 | NUR ---
BIB [facility] FOR GENERALIZED ABD PAIN, MORE RUQ X3D BUT PT "UNSURE HOW LONG, A WHILE, I'VE BEEN SLEEPING UNDER THE STAIRS FOR A FEW DAYS, I HAVEN'T EATEN OR TAKEN MY DIABETES MEDS". HX DM2. MUCUS MEMBRANES DRY, PT LETHARGIC BUT AOX4, MOANING. AT BEDSIDE. PT PLACED ON MONITOR AND IVF STARTED.
[2019-10-05 08:44] LABS: MEAN CORPUSCULAR HEMOGLOBIN 29.1 pg (27.0-34.8); MEAN CORPUSCULAR HGB CONC 33.5 g/dL (32.4-35.8); MEAN CORPUSCULAR VOLUME 86.9 fL (80-100); MEAN PLATELET VOLUME 10.1 fL (7.4-10.4); PLATELET COUNT 117 x10^3/uL (130-400); RED BLOOD COUNT 4.86 x10^6/uL (3.82-5.3); RED CELL DISTRIBUTION WIDTH 13.9 % (9.6-15.2)
[2019-10-05 08:52] LABS: ALANINE AMINOTRANSFERASE 44 U/L (12-78); ALBUMIN 2.1 g/dL (3.4-5.0); ANION GAP 9 mmol/L (5-15); CALCIUM 8.6 mg/dL (8.5-10.1); CHLORIDE 98 mmol/L (98-107); CREATININE 1.29 mg/dL (0.55-1.02)
[2019-10-05 08:55] LABS: ALKALINE PHOSPHATASE 108 U/L (45-117); BILIRUBIN,TOTAL 0.9 mg/dL (0.2-1.0); TOTAL PROTEIN 6.4 g/dL (6.4-8.2)
[2019-10-05 08:59] LABS: MD YES
[2019-10-05 09:07] LABS: BANDS%(MANUAL) 29 % (0-7); LYMPHS% (MANUAL) 6 % (22-44); MONOS% (MANUAL) 1 % (2-9); SEGS% (MANUAL) 64 % (42-75)
[2019-10-05 09:09] LABS: <PLATELET ESTIMATE> DECREASED; <PLT MORPHOLOGY> NORMAL PLT MORPH
[2019-10-05 09:14] LABS: POLYCHROMASIA 1+
--- NOTE | 2019-10-05 09:24 | NUR ---
PT STATES SHE CANNOT PROVIDE UA AND HAS NOT BEEN ABLE TO URINATE FOR SOME TIME, NOTIFIED. NO NEED FOR STRAIGHT CATH AT THIS TIME, PT TO HAVE 2ND L OF IVF
--- NOTE | 2019-10-05 10:44 | NUR ---
REPORT RECEVIED FROM DAVID JENKINS. ASSUMED CARE
[2019-10-05 11:00] LABS: MICROSCOPIC INDICATED
[2019-10-05] MEDS ORDERED: OMNIPAQUE 350 MG/ML, 100ML BOTTLE ONE (11:18)
[2019-10-05 11:21] LABS: CULTURE INDICATED? NO
[2019-10-05] MEDS ORDERED: CEFTRIAXONE PMX 1GM/50ML 50 ML ONE (12:50)
[2019-10-05] MEDS: CEFTRIAXONE PMX 1GM/50ML 50 ML IVPB ONE ×3 (12:53→14:56)
--- NOTE | 2019-10-05 12:57 | NUR ---
PRIOR TO ADM ABX I SPOKE WITH THE PROVIDER ABOUT THE NEED FOR BLOOD CULTURES. BLOOD CULTURES HAVE BEEN ORDERED.
[2019-10-05] MEDS ORDERED: SODIUM CHLORIDE FLUSH 10ML SYR IVF PRN (13:00)
[2019-10-05] MEDS ORDERED: OMEP20TA62 PO (13:06)
--- NOTE | 2019-10-05 13:33 | NUR ---
TRANFERED PT TO FLOOR. UNABLE TO START ABX. WAITING FOR SECOND BLOOD CULTURE TO BE DRAWN. ABX SENT TO FLOOR WITH PT. FLOOR NURSE, BRANDON, NOTIFIED TO NOT HANG ABX UNTIL CULTURES HAVE BEEN DRAWN
[2019-10-05 13:59] VITALS: BP 146/74
[2019-10-05] MEDS ORDERED: DEXTROSE 50%, 50ML SYRINGE IVPush PRN (14:30)
[2019-10-05] MEDS ORDERED: BISACODYL 10 MG SUPP PR PRN (14:30)
[2019-10-05] MEDS ORDERED: DEXTROSE 4 GM TAB.CHEW PO PRN (14:30)
[2019-10-05] MEDS ORDERED: GLUCAGON 1 MG IM PRN (14:30)
[2019-10-05] MEDS ORDERED: GABAPENTIN 300 MG CAPSULE PO PRN (14:30)
[2019-10-05] MEDS ORDERED: ONDANSETRON 2MG/ML, 2ML IVPush PRN (14:30)
[2019-10-05] MEDS ORDERED: DOCUSATE 100 MG CAPSULE PO PRN (14:30)
[2019-10-05] MEDS ORDERED: POLYETHYLENE GLYCOL 17 GM PACKET PO PRN (14:30)
[2019-10-05] MEDS: morphine SULFATE 10 MG/ML, 1ML IVPush PRN ×2 (14:56→20:32)
[2019-10-05] MEDS: SODIUM CHLORIDE 0.9% 1,000 ML IV SCH (15:04)
[2019-10-05] MEDS: CEFTRIAXONE PMX 1GM/50ML 50 ML IV SCH (15:10)
[2019-10-05] MEDS ORDERED: GABA300C10 PO (15:26)
[2019-10-05] MEDS ORDERED: DULA0.75 SC (15:26)
[2019-10-05] MEDS: DOXYCYCLINE 100 MG in DEXTROSE 5% 250 ML IV SCH (16:04)
[2019-10-05] MEDS ORDERED: ALBUTEROL/IPRATROPIUM 2.5MG/0.5MG, 3 ML NPPB PRN (17:00)
[2019-10-05] MEDS: NICOTINE 21 MG/24 HR PATCH.TD24 TD SCH (17:54)
[2019-10-05] MEDS: INSULIN LISPRO 100 UNITS/ML, PEN SQ-INSULIN SCH ×2 (17:55→20:31)
[2019-10-05 20:12] VITALS: BP 150/76
[2019-10-05] MEDS: SODIUM CHLORIDE FLUSH 10ML SYR IVF SCH (20:34)
[2019-10-06 00:16] VITALS: BP 156/79
[2019-10-06] MEDS: SODIUM CHLORIDE 0.9% 1,000 ML IV SCH ×3 (00:18→17:06)
[2019-10-06] MEDS: DOXYCYCLINE 100 MG in DEXTROSE 5% 250 ML IV SCH ×2 (03:55→17:53)
[2019-10-06] MEDS: morphine SULFATE 10 MG/ML, 1ML IVPush PRN ×2 (04:21→08:29)
[2019-10-06 05:48] LABS: ALBUMIN 1.6 g/dL (3.4-5.0); ANION GAP 7 mmol/L (5-15); CALCIUM 8.2 mg/dL (8.5-10.1); CHLORIDE 107 mmol/L (98-107)
[2019-10-06 05:54] LABS: ALANINE AMINOTRANSFERASE 31 U/L (12-78); ALKALINE PHOSPHATASE 87 U/L (45-117); BILIRUBIN,TOTAL 0.6 mg/dL (0.2-1.0); CREATININE 0.64 mg/dL (0.55-1.02); MEAN CORPUSCULAR HEMOGLOBIN 29.3 pg (27.0-34.8); MEAN CORPUSCULAR HGB CONC 33.1 g/dL (32.4-35.8); MEAN CORPUSCULAR VOLUME 88.4 fL (80-100); MEAN PLATELET VOLUME 10.4 fL (7.4-10.4); PLATELET COUNT 108 x10^3/uL (130-400); RED BLOOD COUNT 4.23 x10^6/uL (3.82-5.3); RED CELL DISTRIBUTION WIDTH 13.9 % (9.6-15.2); TOTAL PROTEIN 5.3 g/dL (6.4-8.2)
[2019-10-06 06:32] LABS: BASOPHILS # (AUTO) 0.01 x10^3/uL (0-0.1); BASOPHILS % (AUTO) 0 % (0-1); EOSINOPHILS # (AUTO) 0.04 x10^3/uL (0-0.4); EOSINOPHILS % (AUTO) 0 % (1-7); LYMPHOCYTES # (AUTO) 0.79 x10^3/uL (1-3.4); LYMPHOCYTES % (AUTO) 5 % (22-44); MD SCAN; MONOCYTES # (AUTO) 0.74 x10^3/uL (0.2-0.8); MONOCYTES % (AUTO) 5 % (2-9); NEUTROPHILS # (AUTO) 12.95 x10^3/uL (1.8-6.8); NEUTROPHILS % (AUTO) 89 % (42-75)
[2019-10-06 08:03] VITALS: BP 166/82
[2019-10-06] MEDS: INSULIN LISPRO 100 UNITS/ML, PEN SQ-INSULIN SCH ×4 (08:30→21:39)
[2019-10-06] MEDS: SODIUM CHLORIDE FLUSH 10ML SYR IVF SCH ×2 (08:30→21:00)
[2019-10-06] MEDS ORDERED: FENTANYL PF 100 MCG/2ML ONE (10:19)
[2019-10-06] MEDS ORDERED: MIDAZOLAM 1 MG/ML, 5ML ONE (10:19)
[2019-10-06 11:46] VITALS: BP 155/78
[2019-10-06] MEDS ORDERED: LIDOCAINE 4% TOPICAL SOLUTION 50 ML ONE (16:59)
[2019-10-06] MEDS ORDERED: LIDOCAINE GEL 2%, 5ML ONE (16:59)
[2019-10-06] MEDS: CEFTRIAXONE PMX 1GM/50ML 50 ML IV SCH (17:06)
[2019-10-06] MEDS: NICOTINE 21 MG/24 HR PATCH.TD24 TD SCH (17:08)
[2019-10-06] MEDS: OXYcodone IR 5MG TABLET PO PRN ×2 (17:09→21:39)
[2019-10-06 20:26] VITALS: BP 154/78
[2019-10-07] MEDS: SODIUM CHLORIDE 0.9% 1,000 ML IV SCH ×3 (00:58→18:10)
[2019-10-07 03:28] VITALS: BP 177/84
[2019-10-07] MEDS: DOXYCYCLINE 100 MG in DEXTROSE 5% 250 ML IV SCH (03:42)
[2019-10-07] MEDS: OXYcodone IR 5MG TABLET PO PRN ×4 (03:42→20:16)
[2019-10-07 05:46] LABS: MEAN CORPUSCULAR HEMOGLOBIN 29.2 pg (27.0-34.8); MEAN CORPUSCULAR VOLUME 88.3 fL (80-100); MEAN PLATELET VOLUME 9.5 fL (7.4-10.4); PLATELET COUNT 119 x10^3/uL (130-400); RED CELL DISTRIBUTION WIDTH 14.1 % (9.6-15.2)
[2019-10-07 05:56] LABS: ALBUMIN 1.6 g/dL (3.4-5.0); ANION GAP 7 mmol/L (5-15); CALCIUM 7.9 mg/dL (8.5-10.1); CHLORIDE 107 mmol/L (98-107)
[2019-10-07 05:59] LABS: ALANINE AMINOTRANSFERASE 31 U/L (12-78); ALKALINE PHOSPHATASE 93 U/L (45-117); BILIRUBIN,TOTAL 0.5 mg/dL (0.2-1.0); TOTAL PROTEIN 5.4 g/dL (6.4-8.2)
[2019-10-07] MEDS ORDERED: POTASSIUM CHLORIDE 20 MEQ TAB.ER.PRT PO SCH (08:00)
[2019-10-07 08:28] VITALS: BP 164/87
[2019-10-07 08:43] LABS: BASOPHILS # (AUTO) 0.01 x10^3/uL (0-0.1); BASOPHILS % (AUTO) 0 % (0-1); EOSINOPHILS # (AUTO) 0.12 x10^3/uL (0-0.4); EOSINOPHILS % (AUTO) 1 % (1-7); LYMPHOCYTES # (AUTO) 0.85 x10^3/uL (1-3.4); LYMPHOCYTES % (AUTO) 7 % (22-44); MD SCAN; MONOCYTES # (AUTO) 0.92 x10^3/uL (0.2-0.8); MONOCYTES % (AUTO) 7 % (2-9); NEUTROPHILS # (AUTO) 10.65 x10^3/uL (1.8-6.8); NEUTROPHILS % (AUTO) 85 % (42-75)
[2019-10-07] MEDS: DOXYCYCLINE 100MG TABLET PO SCH ×2 (08:57→20:15)
[2019-10-07] MEDS: INSULIN LISPRO 100 UNITS/ML, PEN SQ-INSULIN SCH ×2 (08:57→12:22)
[2019-10-07] MEDS: SODIUM CHLORIDE FLUSH 10ML SYR IVF SCH ×2 (08:58→20:16)
[2019-10-07 14:42] VITALS: BP 162/84
[2019-10-07] MEDS: CEFTRIAXONE PMX 1GM/50ML 50 ML IV SCH (14:50)
[2019-10-07] MEDS: NICOTINE 21 MG/24 HR PATCH.TD24 TD SCH (16:08)
[2019-10-07 19:20] VITALS: BP 176/81
[2019-10-08] MEDS: SODIUM CHLORIDE 0.9% 1,000 ML IV SCH ×2 (00:42→07:24)
[2019-10-08] MEDS: OXYcodone IR 5MG TABLET PO PRN ×5 (00:45→21:30)
[2019-10-08 03:58] VITALS: BP 162/74
[2019-10-08] MEDS: SODIUM CHLORIDE FLUSH 10ML SYR IVF SCH ×2 (07:25→21:30)
[2019-10-08 08:10] VITALS: BP 184/81
[2019-10-08] MEDS: PIPERACILLIN/TAZO/PMX 4.5GM 100 ML IV SCH ×2 (09:51→15:28)
[2019-10-08] MEDS: AMLODIPINE 10 MG TAB PO SCH (09:52)
[2019-10-08] MEDS: HEPARIN 5,000 UNITS/ML, 1ML SQ SCH ×2 (09:52→17:00)
[2019-10-08] MEDS: CHLORTHALIDONE 25 MG TABLET PO SCH (09:53)
[2019-10-08] MEDS: INSULIN LISPRO 100 UNITS/ML, PEN SQ-INSULIN SCH ×3 (10:45→20:55)
[2019-10-08] MEDS ORDERED: SODIUM CHLORIDE 0.9% 1,000 ML IV SCH (14:16)
[2019-10-08 14:48] VITALS: BP 191/90
[2019-10-08] MEDS: NICOTINE 21 MG/24 HR PATCH.TD24 TD SCH (15:29)
[2019-10-08] MEDS: AMPICILLIN/SULBACTAM 1,500 MG in SODIUM CHLORIDE 0.9% 50 ML IV SCH ×2 (17:25→22:39)
[2019-10-08 20:33] VITALS: BP 177/84
[2019-10-08 21:28] VITALS: BP_SYST 175; BP_SYST 185; BP_DIAS 89; BP_DIAS 94
[2019-10-08 22:38] VITALS: BP 177/89
[2019-10-09] MEDS: HEPARIN 5,000 UNITS/ML, 1ML SQ SCH ×3 (01:00→16:09)
[2019-10-09] MEDS: OXYcodone IR 5MG TABLET PO PRN ×4 (03:02→21:02)
[2019-10-09 03:08] VITALS: BP 195/90
[2019-10-09 04:52] VITALS: BP 168/83
[2019-10-09] MEDS: AMPICILLIN/SULBACTAM 1,500 MG in SODIUM CHLORIDE 0.9% 50 ML IV SCH ×4 (04:53→22:58)
[2019-10-09 06:00] LABS: MEAN CORPUSCULAR HEMOGLOBIN 28.6 pg (27.0-34.8); MEAN CORPUSCULAR HGB CONC 33.2 g/dL (32.4-35.8); MEAN CORPUSCULAR VOLUME 86.1 fL (80-100); MEAN PLATELET VOLUME 8.9 fL (7.4-10.4); PLATELET COUNT 123 x10^3/uL (130-400); RED BLOOD COUNT 4.34 x10^6/uL (3.82-5.3)
[2019-10-09 06:11] LABS: ALBUMIN 1.7 g/dL (3.4-5.0); ANION GAP 7 mmol/L (5-15); CALCIUM 8.1 mg/dL (8.5-10.1); CHLORIDE 104 mmol/L (98-107)
[2019-10-09 06:16] LABS: ALANINE AMINOTRANSFERASE 27 U/L (12-78); ALKALINE PHOSPHATASE 112 U/L (45-117); BILIRUBIN,TOTAL 0.9 mg/dL (0.2-1.0); CREATININE 0.44 mg/dL (0.55-1.02); TOTAL PROTEIN 5.5 g/dL (6.4-8.2)
[2019-10-09 06:48] VITALS: BP 175/89
[2019-10-09 06:50] LABS: MD YES
[2019-10-09 06:53] LABS: BAND#(MANUAL) 1.58 x10^3/uL; BANDS%(MANUAL) 15 % (0-7); EOS#(MANUAL) 0.21 x10^3/uL (0.0-0.4); EOS% (MANUAL) 2 % (1-7); LYMPH#(MANUAL) 0.84 x10^3/uL (1-3.4); LYMPHS% (MANUAL) 8 % (22-44); MONOS#(MANUAL) 1.47 x10^3/uL (0.3-2.7); MONOS% (MANUAL) 14 % (2-9); MYELOCYTES# (MANUAL) 0.53 x10^3/uL (0-0); MYELOCYTES% (MANUAL) 5 % (0-0)
[2019-10-09 06:54] LABS: METAMYELOCYTES# (MANUAL) 0.32 x10^3/uL (0-0); METAMYELOCYTES% (MANUAL) 3 % (0-1); SEG#(MANUAL) 5.57 x10^3/uL (1.8-6.8); SEGS% (MANUAL) 53 % (42-75)
[2019-10-09 06:55] LABS: <PLATELET ESTIMATE> DECREASED; <PLT MORPHOLOGY> NORMAL PLT MORPH; <RBC MORPHOLOGY> NORMAL; TOXIC GRAN 1+
[2019-10-09] MEDS: INSULIN LISPRO 100 UNITS/ML, PEN SQ-INSULIN SCH ×4 (07:00→21:09)
[2019-10-09] MEDS: SODIUM CHLORIDE FLUSH 10ML SYR IVF SCH ×2 (08:24→21:01)
[2019-10-09] MEDS: AMLODIPINE 10 MG TAB PO SCH (08:44)
[2019-10-09] MEDS: CHLORTHALIDONE 25 MG TABLET PO SCH (08:44)
[2019-10-09] MEDS ORDERED: POTASSIUM CHLORIDE 20 MEQ TAB.ER.PRT ONE (10:56)
[2019-10-09] MEDS: SPIRONOLACTONE 25 MG TABLET PO SCH (10:59)
[2019-10-09 13:22] VITALS: BP 164/86
[2019-10-09] MEDS: POTASSIUM CHLORIDE 20 MEQ TAB.ER.PRT PO SCH (16:22)
[2019-10-09] MEDS: NICOTINE 21 MG/24 HR PATCH.TD24 TD SCH (16:22)
[2019-10-09 18:55] VITALS: BP 167/84
[2019-10-10] MEDS: HEPARIN 5,000 UNITS/ML, 1ML SQ SCH ×3 (01:00→17:00)
[2019-10-10 02:37] VITALS: BP 173/93
[2019-10-10] MEDS: OXYcodone IR 5MG TABLET PO PRN ×3 (02:45→20:24)
[2019-10-10] MEDS: AMPICILLIN/SULBACTAM 1,500 MG in SODIUM CHLORIDE 0.9% 50 ML IV SCH ×4 (04:41→22:56)
[2019-10-10 05:27] LABS: MEAN CORPUSCULAR HEMOGLOBIN 28.3 pg (27.0-34.8); MEAN CORPUSCULAR HGB CONC 32.8 g/dL (32.4-35.8); MEAN CORPUSCULAR VOLUME 86.2 fL (80-100); MEAN PLATELET VOLUME 8.5 fL (7.4-10.4); PLATELET COUNT 133 x10^3/uL (130-400); RED BLOOD COUNT 4.56 x10^6/uL (3.82-5.3); RED CELL DISTRIBUTION WIDTH 13.9 % (9.6-15.2)
[2019-10-10 05:37] LABS: ALANINE AMINOTRANSFERASE 28 U/L (12-78); ALBUMIN 1.7 g/dL (3.4-5.0); ANION GAP 5 mmol/L (5-15); CALCIUM 8.4 mg/dL (8.5-10.1); CHLORIDE 99 mmol/L (98-107); CREATININE 0.55 mg/dL (0.55-1.02)
[2019-10-10 05:39] LABS: ALKALINE PHOSPHATASE 114 U/L (45-117); BILIRUBIN,TOTAL 0.6 mg/dL (0.2-1.0); TOTAL PROTEIN 5.5 g/dL (6.4-8.2)
[2019-10-10 06:25] LABS: MD YES
[2019-10-10 06:27] LABS: <PLATELET ESTIMATE> ADEQUATE; <PLT MORPHOLOGY> NORMAL PLT MORPH; <RBC MORPHOLOGY> NORMAL; BAND#(MANUAL) 1.34 x10^3/uL; BANDS%(MANUAL) 12 % (0-7); EOS#(MANUAL) 0.45 x10^3/uL (0.0-0.4); EOS% (MANUAL) 4 % (1-7); LYMPHS% (MANUAL) 8 % (22-44); METAMYELOCYTES# (MANUAL) 0.34 x10^3/uL (0-0); METAMYELOCYTES% (MANUAL) 3 % (0-1); MONOS#(MANUAL) 0.56 x10^3/uL (0.3-2.7); MONOS% (MANUAL) 5 % (2-9); SEG#(MANUAL) 7.62 x10^3/uL (1.8-6.8); SEGS% (MANUAL) 68 % (42-75); TOXIC GRAN 1+
[2019-10-10 07:30] VITALS: BP 176/93
[2019-10-10] MEDS: POTASSIUM CHLORIDE 20 MEQ TAB.ER.PRT PO SCH ×2 (08:23→17:06)
[2019-10-10] MEDS: SODIUM CHLORIDE FLUSH 10ML SYR IVF SCH ×2 (08:24→20:24)
[2019-10-10] MEDS: CHLORTHALIDONE 25 MG TABLET PO SCH (08:24)
[2019-10-10] MEDS: SPIRONOLACTONE 25 MG TABLET PO SCH (08:24)
[2019-10-10] MEDS: AMLODIPINE 10 MG TAB PO SCH (08:24)
[2019-10-10] MEDS: INSULIN LISPRO 100 UNITS/ML, PEN SQ-INSULIN SCH ×4 (08:26→20:32)
[2019-10-10 13:41] VITALS: BP 176/88
[2019-10-10] MEDS: NICOTINE 21 MG/24 HR PATCH.TD24 TD SCH (17:07)
[2019-10-10 19:46] VITALS: BP 173/94
[2019-10-11] MEDS: HEPARIN 5,000 UNITS/ML, 1ML SQ SCH ×3 (00:46→16:11)
[2019-10-11 00:55] VITALS: BP 156/89
[2019-10-11] MEDS: AMPICILLIN/SULBACTAM 1,500 MG in SODIUM CHLORIDE 0.9% 50 ML IV SCH ×2 (04:33→11:47)
[2019-10-11 06:44] LABS: MEAN CORPUSCULAR HEMOGLOBIN 28.8 pg (27.0-34.8); MEAN CORPUSCULAR HGB CONC 32.9 g/dL (32.4-35.8); MEAN CORPUSCULAR VOLUME 87.5 fL (80-100); MEAN PLATELET VOLUME 8.6 fL (7.4-10.4); PLATELET COUNT 160 x10^3/uL (130-400); RED BLOOD COUNT 5.02 x10^6/uL (3.82-5.3); RED CELL DISTRIBUTION WIDTH 14.2 % (9.6-15.2)
[2019-10-11 07:15] LABS: MD YES
[2019-10-11 07:17] LABS: BAND#(MANUAL) 1.63 x10^3/uL; BANDS%(MANUAL) 11 % (0-7); BASOS#(MANUAL) 0.15 x10^3/uL (0-0.1); BASOS% (MANUAL) 1 % (0-1); EOS#(MANUAL) 0.15 x10^3/uL (0.0-0.4); EOS% (MANUAL) 1 % (1-7); LYMPH#(MANUAL) 2.07 x10^3/uL (1-3.4); LYMPHS% (MANUAL) 14 % (22-44); METAMYELOCYTES% (MANUAL) 2 % (0-1); MONOS#(MANUAL) 0.74 x10^3/uL (0.3-2.7); MONOS% (MANUAL) 5 % (2-9); SEG#(MANUAL) 9.77 x10^3/uL (1.8-6.8); SEGS% (MANUAL) 66 % (42-75)
[2019-10-11 07:19] LABS: <PLATELET ESTIMATE> ADEQUATE; <PLT MORPHOLOGY> NORMAL PLT MORPH; <RBC MORPHOLOGY> NORMAL
[2019-10-11 07:51] VITALS: BP 173/80
[2019-10-11] MEDS: AMLODIPINE 10 MG TAB PO SCH (08:07)
[2019-10-11] MEDS: OXYcodone IR 5MG TABLET PO PRN ×3 (08:07→20:32)
[2019-10-11] MEDS: SPIRONOLACTONE 25 MG TABLET PO SCH (08:08)
[2019-10-11] MEDS: CHLORTHALIDONE 25 MG TABLET PO SCH (08:08)
[2019-10-11] MEDS: POTASSIUM CHLORIDE 20 MEQ TAB.ER.PRT PO SCH ×2 (08:08→16:10)
[2019-10-11] MEDS: INSULIN LISPRO 100 UNITS/ML, PEN SQ-INSULIN SCH ×4 (08:08→20:36)
[2019-10-11] MEDS: SODIUM CHLORIDE FLUSH 10ML SYR IVF SCH ×2 (08:09→20:36)
[2019-10-11 10:06] VITALS: BP 155/82
[2019-10-11 13:26] VITALS: BP 155/77
[2019-10-11 16:08] VITALS: BP 142/81
[2019-10-11] MEDS: CEFTRIAXONE PMX 2GM/50ML 50 ML IV SCH (16:11)
[2019-10-11] MEDS: NICOTINE 21 MG/24 HR PATCH.TD24 TD SCH (16:22)
[2019-10-11 19:23] VITALS: BP 145/76
[2019-10-12] MEDS: OXYcodone IR 5MG TABLET PO PRN ×4 (01:15→20:03)
[2019-10-12] MEDS: HEPARIN 5,000 UNITS/ML, 1ML SQ SCH ×3 (01:15→17:00)
[2019-10-12 01:18] VITALS: BP 152/80
[2019-10-12 07:07] LABS: MEAN CORPUSCULAR HEMOGLOBIN 28.6 pg (27.0-34.8); MEAN CORPUSCULAR HGB CONC 33.3 g/dL (32.4-35.8); MEAN CORPUSCULAR VOLUME 85.9 fL (80-100); MEAN PLATELET VOLUME 8.7 fL (7.4-10.4); PLATELET COUNT 155 x10^3/uL (130-400); RED BLOOD COUNT 4.82 x10^6/uL (3.82-5.3); RED CELL DISTRIBUTION WIDTH 14.5 % (9.6-15.2)
[2019-10-12 07:18] LABS: ALBUMIN 2.2 g/dL (3.4-5.0); ANION GAP 6 mmol/L (5-15); CALCIUM 8.9 mg/dL (8.5-10.1); CHLORIDE 100 mmol/L (98-107)
[2019-10-12 07:23] LABS: ALANINE AMINOTRANSFERASE 28 U/L (12-78); ALKALINE PHOSPHATASE 146 U/L (45-117); BILIRUBIN,TOTAL 0.4 mg/dL (0.2-1.0); CREATININE 0.68 mg/dL (0.55-1.02); TOTAL PROTEIN 6.6 g/dL (6.4-8.2)
[2019-10-12 07:33] LABS: MD YES
[2019-10-12 07:35] LABS: BAND#(MANUAL) 1.22 x10^3/uL; BANDS%(MANUAL) 8 % (0-7); LYMPHS% (MANUAL) 17 % (22-44); MONOS#(MANUAL) 0.61 x10^3/uL (0.3-2.7); MONOS% (MANUAL) 4 % (2-9); SEG#(MANUAL) 10.86 x10^3/uL (1.8-6.8); SEGS% (MANUAL) 71 % (42-75)
[2019-10-12 07:36] LABS: <PLATELET ESTIMATE> ADEQUATE; <PLT MORPHOLOGY> NORMAL PLT MORPH; <RBC MORPHOLOGY> NORMAL
[2019-10-12 07:48] VITALS: BP 163/81
[2019-10-12] MEDS: AMLODIPINE 10 MG TAB PO SCH (07:51)
[2019-10-12] MEDS: INSULIN LISPRO 100 UNITS/ML, PEN SQ-INSULIN SCH ×4 (07:51→20:07)
[2019-10-12] MEDS: POTASSIUM CHLORIDE 20 MEQ TAB.ER.PRT PO SCH ×2 (07:52→17:05)
[2019-10-12] MEDS: CHLORTHALIDONE 25 MG TABLET PO SCH (07:52)
[2019-10-12] MEDS: SPIRONOLACTONE 25 MG TABLET PO SCH (07:58)
[2019-10-12] MEDS: SODIUM CHLORIDE FLUSH 10ML SYR IVF SCH ×2 (07:58→20:07)
[2019-10-12 14:26] VITALS: BP 157/85
[2019-10-12 17:00] VITALS: BP 146/84
[2019-10-12] MEDS: NICOTINE 21 MG/24 HR PATCH.TD24 TD SCH (17:05)
[2019-10-12] MEDS: CEFTRIAXONE PMX 2GM/50ML 50 ML IV SCH (17:06)
[2019-10-12 19:06] VITALS: BP 157/85
[2019-10-12 20:03] VITALS: BP 139/75
[2019-10-13 01:00] VITALS: BP 150/70
[2019-10-13] MEDS: HEPARIN 5,000 UNITS/ML, 1ML SQ SCH ×4 (01:00→23:16)
[2019-10-13] MEDS: OXYcodone IR 5MG TABLET PO PRN ×4 (01:06→21:06)
[2019-10-13 05:07] LABS: BASOPHILS # (AUTO) 0.05 x10^3/uL (0-0.1); BASOPHILS % (AUTO) 0 % (0-1); EOSINOPHILS % (AUTO) 2 % (1-7); LYMPHOCYTES # (AUTO) 2.02 x10^3/uL (1-3.4); LYMPHOCYTES % (AUTO) 12 % (22-44); MD NO; MEAN CORPUSCULAR HEMOGLOBIN 28.5 pg (27.0-34.8); MEAN CORPUSCULAR HGB CONC 32.8 g/dL (32.4-35.8); MEAN CORPUSCULAR VOLUME 86.7 fL (80-100); MEAN PLATELET VOLUME 8.9 fL (7.4-10.4); MONOCYTES # (AUTO) 0.76 x10^3/uL (0.2-0.8); MONOCYTES % (AUTO) 5 % (2-9); NEUTROPHILS # (AUTO) 13.55 x10^3/uL (1.8-6.8); NEUTROPHILS % (AUTO) 81 % (42-75); PLATELET COUNT 157 x10^3/uL (130-400); RED BLOOD COUNT 4.57 x10^6/uL (3.82-5.3); RED CELL DISTRIBUTION WIDTH 14.3 % (9.6-15.2)
[2019-10-13 05:17] LABS: ALBUMIN 2.2 g/dL (3.4-5.0); ANION GAP 3 mmol/L (5-15); CALCIUM 8.9 mg/dL (8.5-10.1); CHLORIDE 102 mmol/L (98-107); CREATININE 0.83 mg/dL (0.55-1.02)
[2019-10-13] MEDS ORDERED: SODIUM CHLORIDE 0.9% 1,000ML IVBOLUS ONE (07:00)
[2019-10-13] MEDS ORDERED: CALCIUM GLUCONATE 4.6 MEQ in SODIUM CHLORIDE 0.9% 50 ML IV ONE (07:00)
[2019-10-13 07:33] VITALS: BP 160/84
[2019-10-13] MEDS: CHLORTHALIDONE 25 MG TABLET PO SCH (07:42)
[2019-10-13] MEDS: AMLODIPINE 10 MG TAB PO SCH (07:42)
[2019-10-13] MEDS: SPIRONOLACTONE 25 MG TABLET PO SCH (07:42)
[2019-10-13] MEDS: INSULIN LISPRO 100 UNITS/ML, PEN SQ-INSULIN SCH ×4 (07:43→21:05)
[2019-10-13] MEDS: SODIUM CHLORIDE FLUSH 10ML SYR IVF SCH ×2 (07:43→21:00)
[2019-10-13 13:39] VITALS: BP 131/72
[2019-10-13 16:20] VITALS: BP 131/74
[2019-10-13] MEDS: CEFTRIAXONE PMX 2GM/50ML 50 ML IV SCH (16:22)
[2019-10-13] MEDS: NICOTINE 21 MG/24 HR PATCH.TD24 TD SCH (16:22)
[2019-10-13 19:52] VITALS: BP 156/72
[2019-10-14 01:01] VITALS: BP 153/82
[2019-10-14 05:05] LABS: BASOPHILS # (AUTO) 0.22 x10^3/uL (0-0.1); BASOPHILS % (AUTO) 1 % (0-1); EOSINOPHILS # (AUTO) 0.24 x10^3/uL (0-0.4); EOSINOPHILS % (AUTO) 1 % (1-7); LYMPHOCYTES # (AUTO) 1.88 x10^3/uL (1-3.4); LYMPHOCYTES % (AUTO) 11 % (22-44); MD NO; MEAN CORPUSCULAR HEMOGLOBIN 28.5 pg (27.0-34.8); MEAN CORPUSCULAR VOLUME 86.3 fL (80-100); MEAN PLATELET VOLUME 9.2 fL (7.4-10.4); MONOCYTES # (AUTO) 0.68 x10^3/uL (0.2-0.8); MONOCYTES % (AUTO) 4 % (2-9); NEUTROPHILS # (AUTO) 13.54 x10^3/uL (1.8-6.8); NEUTROPHILS % (AUTO) 82 % (42-75); PLATELET COUNT 168 x10^3/uL (130-400); RED BLOOD COUNT 4.72 x10^6/uL (3.82-5.3); RED CELL DISTRIBUTION WIDTH 14.3 % (9.6-15.2)
[2019-10-14 05:18] LABS: ALBUMIN 2.4 g/dL (3.4-5.0); ANION GAP 4 mmol/L (5-15); CHLORIDE 101 mmol/L (98-107)
[2019-10-14 05:20] LABS: CREATININE 0.81 mg/dL (0.55-1.02)
[2019-10-14] MEDS: INSULIN LISPRO 100 UNITS/ML, PEN SQ-INSULIN SCH ×4 (07:54→20:42)
[2019-10-14 08:16] VITALS: BP 158/92
[2019-10-14] MEDS: HEPARIN 5,000 UNITS/ML, 1ML SQ SCH ×2 (10:21→16:25)
[2019-10-14] MEDS: SPIRONOLACTONE 25 MG TABLET PO SCH (10:26)
[2019-10-14] MEDS: AMLODIPINE 10 MG TAB PO SCH (10:26)
[2019-10-14] MEDS: CHLORTHALIDONE 25 MG TABLET PO SCH (10:26)
[2019-10-14] MEDS: SODIUM CHLORIDE FLUSH 10ML SYR IVF SCH ×2 (10:27→20:42)
[2019-10-14] MEDS: OXYcodone IR 5MG TABLET PO PRN ×3 (10:39→23:59)
[2019-10-14 13:29] VITALS: BP 138/76
[2019-10-14] MEDS: CEFTRIAXONE PMX 2GM/50ML 50 ML IV SCH (16:22)
[2019-10-14] MEDS: NICOTINE 21 MG/24 HR PATCH.TD24 TD SCH (16:24)
[2019-10-14] MEDS ORDERED: INSULIN LISPRO 100 UNIT/ML, 3ML VIAL SQ-INSULIN SCH (17:00)
[2019-10-14] MEDS ORDERED: INSULIN LISPRO 100 UNIT/ML, 3ML VIAL SQ-INSULIN ONE (17:00)
[2019-10-14 20:09] VITALS: BP 143/71
[2019-10-15 00:05] VITALS: BP 153/75
[2019-10-15] MEDS: HEPARIN 5,000 UNITS/ML, 1ML SQ SCH ×4 (01:00→21:07)
[2019-10-15] MEDS: OXYcodone IR 5MG TABLET PO PRN ×5 (04:43→21:35)
[2019-10-15 07:17] VITALS: BP 140/84
[2019-10-15] MEDS: SODIUM CHLORIDE FLUSH 10ML SYR IVF SCH ×2 (09:00→21:00)
[2019-10-15] MEDS: CHLORTHALIDONE 25 MG TABLET PO SCH (09:00)
[2019-10-15] MEDS: SPIRONOLACTONE 25 MG TABLET PO SCH (09:00)
[2019-10-15] MEDS: AMLODIPINE 10 MG TAB PO SCH (09:06)
[2019-10-15] MEDS: INSULIN LISPRO 100 UNITS/ML, PEN SQ-INSULIN SCH ×4 (09:24→21:36)
[2019-10-15 13:08] VITALS: BP 144/80
[2019-10-15] MEDS: NICOTINE 21 MG/24 HR PATCH.TD24 TD SCH (17:36)
[2019-10-15] MEDS: CEFDINIR 300 MG CAPSULE PO SCH (17:36)
[2019-10-15 19:17] VITALS: BP 139/77
[2019-10-16 01:31] VITALS: BP 147/71
[2019-10-16] MEDS: OXYcodone IR 5MG TABLET PO PRN (01:44)
[2019-10-16] MEDS: HEPARIN 5,000 UNITS/ML, 1ML SQ SCH (05:00)
[2019-10-16] MEDS: CEFDINIR 300 MG CAPSULE PO SCH ×2 (06:03→14:55)
[2019-10-16] MEDS: NICOTINE 21 MG/24 HR PATCH.TD24 TD SCH (06:08)
[2019-10-16 07:01] VITALS: BP 149/75
[2019-10-16] MEDS ORDERED: CEFD300C37 PO (07:58)
[2019-10-16] MEDS: INSULIN LISPRO 100 UNITS/ML, PEN SQ-INSULIN SCH ×2 (08:01→12:47)
[2019-10-16] MEDS: SPIRONOLACTONE 25 MG TABLET PO SCH (08:02)
[2019-10-16] MEDS: CHLORTHALIDONE 25 MG TABLET PO SCH (08:02)
[2019-10-16] MEDS: SODIUM CHLORIDE FLUSH 10ML SYR IVF SCH (08:02)
[2019-10-16] MEDS: AMLODIPINE 10 MG TAB PO SCH (08:02)
[2019-10-16] MEDS ORDERED: IBUP-1222 PO (09:14)
[2019-10-16] MEDS ORDERED: NICO-487 TD (09:22)
[2019-10-16] MEDS ORDERED: CHLO25TA PO (09:22)
[2019-10-16] MEDS ORDERED: AMLO10TA8 PO (09:22)
== END 2019-10-16 15:54 | disposition home or self-care (01) | DRG 166 ==
LOC: ED 12:35 → EDIP 12:45 → SUATTDRO 12:55 → 3N 13:36 → 4NW 10-06 11:43
PROVIDERS: ADMIT Internal Medicine; ATTEND Family Medicine
PROC: 0T9B70Z Drainage of Bladder with Drainage Device, Via Natural or Artificial Opening (ICD-10-PCS; 2019-10-05)
PROC: 0BBF8ZX Excision of Right Lower Lung Lobe, Via Natural or Artificial Opening Endoscopic, Diagnostic (ICD-10-PCS; 2019-10-06)
PROC: 0BDF8ZX Extraction of Right Lower Lung Lobe, Via Natural or Artificial Opening Endoscopic, Diagnostic (ICD-10-PCS; 2019-10-06)
PROC: 0B9F7ZX Drainage of Right Lower Lung Lobe, Via Natural or Artificial Opening, Diagnostic (ICD-10-PCS; principal; 2019-10-06 10:00)
DX: R91.8 Other nonspecific abnormal finding of lung field (principal); J15.5 Pneumonia due to Escherichia coli; N15.1 Renal and perinephric abscess; E44.1 Mild protein-calorie malnutrition; Z68.1 Body mass index [BMI] 19.9 or less, adult; E87.1 Hypo-osmolality and hyponatremia; K76.6 Portal hypertension; N17.9 Acute kidney failure, unspecified; J98.11 Atelectasis; R18.8 Other ascites; K80.20 Calculus of gallbladder without cholecystitis without obstruction; K74.60 Unspecified cirrhosis of liver; N28.1 Cyst of kidney, acquired; B18.2 Chronic viral hepatitis C; D69.6 Thrombocytopenia, unspecified; E11.40 Type 2 diabetes mellitus with diabetic neuropathy, unspecified; E11.65 Type 2 diabetes mellitus with hyperglycemia; E86.0 Dehydration; E87.6 Hypokalemia; F17.200 Nicotine dependence, unspecified, uncomplicated; I10 Essential (primary) hypertension; R16.1 Splenomegaly, not elsewhere classified; D72.825 Bandemia; E78.5 Hyperlipidemia, unspecified; Z59.0 Homelessness; Z79.4 Long term (current) use of insulin; Z80.8 Family history of malignant neoplasm of other organs or systems; Z86.19 Personal history of other infectious and parasitic diseases
CPT/HCPCS: 31623; 31624; 31625; 36415; 71045; 71250; 74177; 76700; 80053; 80069; 80074; 81001; 82962; 83036; 83605; 83690; 83735; 84100; 84145; 85025; 87040; 87070; 87077; 87102; 87116; 87181; 87186; 87205; 87206; 87521; 88104; 88108; 88112; 88305; 88312; 99152; 99153; 99285; G0378; J0610; J0696; J1644; J2250; J2543; J3010; J7060; Q9967; J0295; J1815; J2270; J7030

== ENCOUNTER 2019-10-17 08:53 | Emergency (ER) | payer MEDICAID ==
[~2019-10-17] VITALS: Ht 162.6 cm; Wt 47.7 kg
[~2019-10-17 08:53] MED LIST changes: +CHLO25TA PO; +DULA0.75 SC; +GABA300C10 PO; +IBUP-1222 PO; +NICO-487 TD; +OMEP20TA62 PO
--- NOTE | 2019-10-17 09:50 | NUR ---
PT PRESENTS TO ED STATING SHE WAS DISCHARGED YESTERDAY, ADMITTED FOR PNA. PT STATES SHE WAS UNABLE TO FILL ABX, PT STATES SINCE DISCHARGE YESTERDAY SHE HAS HAD GENERALIZED WEAKNESS AND MULTIPLE FALLS. DENIES SYNCOPE, DENIES LOC, DENIES NECK INJURY. PT DOES NOTE THAT SHE HIT HEAD. PT IS A&OX4, PUPILS EQUAL, ROUND AND REACTIVE. NEURO INTACT. ALL MONITORS APPLIED. EKG TAKEN IN TRIAGE. PT PLACED IN GOWN, WARM BLANKET PROVIDED. AWAITING MD ASSESSMENT AND ORDERS. Addendum: 10/17/19 at 0957 by [email or web address] PT PRESENTS TO ED STATING SHE WAS DISCHARGED YESTERDAY, ADMITTED FOR PNA. PT STATES SHE WAS UNABLE TO FILL ABX, PT STATES SINCE DISCHARGE YESTERDAY SHE HAS HAD GENERALIZED WEAKNESS AND MULTIPLE FALLS. DENIES SYNCOPE, DENIES LOC, DENIES NECK INJURY. PT DOES NOTE THAT SHE HIT HEAD AND HAS HAD HEADACHE SINCE YESTERDAY. PT NOTES SOB THAT HAS BEEN PERSISTENT SINCE DX PNA DURING LAST ADMIT, AND RT CHEST PAIN SINCE "LUNG BIOPSY" PERFORMED LAST WEEK. PT IS A&OX4, PUPILS EQUAL, ROUND AND REACTIVE. NEURO INTACT. ALL MONITORS APPLIED. EKG TAKEN IN TRIAGE. PT PLACED IN GOWN, WARM BLANKET PROVIDED. AWAITING MD ASSESSMENT AND ORDERS.
--- NOTE | 2019-10-17 10:26 | NUR ---
FINGERSTICK GLUCOSE PERFORMED PER [facility] ORDER; 325. [facility] RAZO NOTIFIED.
[2019-10-17] MEDS ORDERED: INSULIN REGULAR 100 UNITS/ML, 3ML VIAL SQ-INSULIN ONE (11:00)
[2019-10-17] MEDS ORDERED: INSULIN SINGLE DOSE, ER ONE ×2 (11:12→11:34)
--- NOTE | 2019-10-17 11:15 | NUR ---
NO REGULAR INSULIN AVAILABLE IN ED [facility] FROM PHARMACY.
[2019-10-17 11:26] LABS: BASOPHILS # (AUTO) 0.02 x10^3/uL (0-0.1); BASOPHILS % (AUTO) 0 % (0-1); EOSINOPHILS # (AUTO) 0.02 x10^3/uL (0-0.4); EOSINOPHILS % (AUTO) 0 % (1-7); LYMPHOCYTES # (AUTO) 1.16 x10^3/uL (1-3.4); LYMPHOCYTES % (AUTO) 10 % (22-44); MD NO; MEAN CORPUSCULAR HEMOGLOBIN 28.4 pg (27.0-34.8); MEAN CORPUSCULAR HGB CONC 32.6 g/dL (32.4-35.8); MEAN CORPUSCULAR VOLUME 86.9 fL (80-100); MEAN PLATELET VOLUME 9.5 fL (7.4-10.4); MONOCYTES # (AUTO) 1.04 x10^3/uL (0.2-0.8); MONOCYTES % (AUTO) 9 % (2-9); NEUTROPHILS % (AUTO) 81 % (42-75); PLATELET COUNT 180 x10^3/uL (130-400); RED CELL DISTRIBUTION WIDTH 14.2 % (9.6-15.2)
[2019-10-17 11:35] LABS: ALBUMIN 2.6 g/dL (3.4-5.0); ANION GAP 7 mmol/L (5-15); CALCIUM 8.7 mg/dL (8.5-10.1); CHLORIDE 96 mmol/L (98-107)
--- NOTE | 2019-10-17 11:35 | NUR ---
late entry d/t patient care: report given to jerel Hinkle.
--- NOTE | 2019-10-17 11:36 | NUR ---
TASK RN: PT RESTING ON GURNEY. NADN. CALLOWAYS. MEDICATED PER DEC.
[2019-10-17 11:39] LABS: ALANINE AMINOTRANSFERASE 35 U/L (12-78); ALKALINE PHOSPHATASE 152 U/L (45-117); BILIRUBIN,TOTAL 0.8 mg/dL (0.2-1.0); CREATININE 0.87 mg/dL (0.55-1.02); TOTAL PROTEIN 7.1 g/dL (6.4-8.2)
--- NOTE | 2019-10-17 12:38 | NUR ---
TASK RN: BACILIO KOCH AT BEDSIDE FOR RE-EVAL.
[2019-10-17 13:03] VITALS: BP 145/80
--- NOTE | 2019-10-17 13:05 | NUR ---
PT GIVEN DC INSTRUCTIONS AND SCRIPT, EDUCATED REGARDING RX FOR CEFDINIR, ROUJEO, AMLODIPINE, GABAPENTIN, IBUPROFEN, AND CHLORTHALIODONE. PT GIVEN TAXI VOUCHER TO GO TO PHARMACY/NURSING HOME. PT REFUSES WALKER OFFERED FOR DC. PT IS A&OX4, RESPS EVEN AND UNLABORED, PT IS AMBULATORY WITH STEADY GAIT, UNASSISTED. PT ABLE TO MAINTAIN STEADY GAIT WHILE CARRYING BELONGINGS. PT AMB TO DC WITH STEADY GAIT, NO COMPLAINT AT DC.
== END 2019-10-17 13:05 | disposition home or self-care (01) ==
LOC: ED 12:55
DX: J18.1 Lobar pneumonia, unspecified organism (principal); R53.1 Weakness; E11.65 Type 2 diabetes mellitus with hyperglycemia; I10 Essential (primary) hypertension; E87.1 Hypo-osmolality and hyponatremia; Z76.0 Encounter for issue of repeat prescription; Z85.118 Personal history of other malignant neoplasm of bronchus and lung
CPT/HCPCS: 80053; 82962; 83735; 85025; 93005; 96372; 99284; J1815